=== PATIENT | female | born 1975 | race Caucasian/White ===

== ENCOUNTER 2022-07-25 08:31 | Outpatient (CLI) | payer BC, SELFPAY ==
[2022-07-30 22:55] LABS: FACV Specimen Whole Blood; Factor V Leiden (F5) Mutation Negative
== END 2022-07-25 08:32 | disposition home or self-care (01) ==
PROVIDERS: Visit Provider Nurse Practitioner Family
DX: Z01.419 Encounter for gynecological examination (general) (routine) without abnormal findings (principal); E03.9 Hypothyroidism, unspecified; Z83.2 Family history of diseases of the blood and blood-forming organs and certain disorders involving the immune mechanism
CPT/HCPCS: 81241; 84443

== ENCOUNTER 2023-10-05 08:21 | Outpatient (CLI) | payer BC, SELFPAY ==
--- OUTSIDE RECORDS SUMMARY | 2023-10-05 08:25 | XMS_ITS | Continuity of Care Document ---
Author Organization [facility] Address [address] [place] [address] Phone Care Team Providers Care Tier And Detonator Name Role Phone Debra Moo ANDRADE Unavailable Unavailable Allergies, Adverse Reactions, Alerts Substance Reaction Status Criticality No Known Allergies Active No Inform ation Medications Medication Instructions Dosage Effective Dates (start - stop) Status Comments prednisone 5 mg tablet Take 20 mg. orally daily X 3 days then 15 mg. daily X 3 days then 10 mg. daily X 3 days then 5 mg. daily X 3 days - Active MULTIVITAMINS (unknown strength) Not Available - Active LEVOTHYROXINE SODIUM (unknown strength) Not Available - Active OXYBUTYNIN CHLORIDE (unknown strength) Not Available - Active NITROFURANTOIN (unknown strength) Not Available - Active Procedures Procedure Date Office/Outpatient Visit,Est, Mod 2022 X-Ray Exam Lower Spine 2-3 Views 2022 Office/Outpatient Visit,Est, Mod 2021 X-Ray Exam Lower Spine 2-3 Views 2021 Office/Outpatient Visit,Est, Mod 2020 X-Ray Exam Lower Spine 2-3 Views 2020 Office/Outpatient Visit,Est, Mod 2020 X-Ray Exam Lower Spine 2-3 Views 2020 Postop Followup Visit X-Ray Exam Lower Spine 2-3 Views 2019 Postop Followup Visit X-Ray Exam Lower Spine 2-3 Views 2019 PSF, Lumbar - PA Lami, Facetectomy/Foraminotomy, Lumbar ( Stenosis) Posterior Instrumentation, Non-segmental - PA PEEK/ Cage/ Implant, For Interbody Fusio n - PA PSF, Lumbar ALIF / OLIF Anterior Lumbar Interbody Fu maryuri - Cosurgeon Lami, Facetectomy/Foraminotomy, Lumbar ( Stenosis) Posterior Instrumentation, Non-segmental PEEK/ Cage/ Implant, For Interbody Fusio n Allograft, Morcelized, and/or BMP Autograft, From Same Incision 0 OFFICE/OUTPATIENT VISIT EST Phone Office/Outpatient Visit,[facility], [facility] 2018 X-Ray Exam Lower Spine 2-3 Views 2018 Postop Followup Visit Postop Followup Visit Low Back Disk Surgery/Decompress 2014 Pa Assist Low Back Disk Surgery/Decompre ss Office/Outpatient Visit,[facility], [facility] 2014 Advance Directives Directive Yes / No Effective Date File Name No Information Encounters Encounter Description Practice Location Reason(s) For Visit Diagnoses Date Provider Providers Copied on Encounter Office/Outpa tient Visit,Est, Mod [facility], [address], [place], [place], [id number] , [place] tel: [phone] [facility] Other spondylosis, lumbar region 3 Debra Cortés. [address], [place], [place], [id number] , [place]. tel: [phone] Referring Provider: Lashaun Berger, [facility] [address], [place], [address]. tel:[phone] Office/Outpa tient Visit,Est, Mod [facility], [address], [place], [place], [id number] , [place] tel: [phone] [facility] [place] Spinal stenosis, lumbar region with neurogenic claudication Sep- 2 Debra Cortés. [address], [facility] [place], [id number] , [place]. tel: [phone] Referring Provider: Lashaun Berger, [place] [address], [place], [address]. tel: [phone] Office/Outpa tient Visit,Est, Mod [facility], [address], [place], [place], [id number] , [place] tel: [phone] [facility] [place] Spinal stenosis, lumbar region with neurogenic claudication Sep-3 0 1 Eckroth Moo. [address] [place] [address] [address], [place], [id number] , [place]. tel: [phone] Referring Provider: Lashaun Berger, [place] [address], [place], [address]. tel: [phone] Office/Outpa tient Visit,Est, Mod [facility], [address], [place], [place], [id number] , [place] tel: [phone] [facility] [place] Low back pain Mar-0 1 Eckrlayo Cortés. [address], [place], [place], [id number] , [place]. tel: [phone] Referring Provider: Lashaun Berger, [place] [address], [place], [address]. tel: [phone] [facility], [address], [place], [id number] , [place] tel: [phone] [facility] [place] Encounter for follow-up examination after completed treatment for conditions other than malignant neoplasm Nov-3 0 Eckroth Moo. [address], [place], [place], [id number] , [place]. tel: [phone] Referring Provider: Lashaun Berger, [place] [address], [place], [address]. tel: [phone] [facility], [address], [place], [id number] , [place] tel: [phone] [facility] [place] Encounter for follow-up examination after completed treatment for conditions other than malignant neoplasm 0 Mehbod Amir. [facility], [address], [place], [place], [id number] , [place]. tel: [phone] Referring Provider: Lashaun Berger, [facility] [address], [place], [address]. tel: [phone] [facility], [address], [place], [place], [id number] , [place] tel: [phone] [facility] No Information - 0 Eckroth Moo. [address] [place] [address] [address], [place], [place], [id number] , [place]. tel: [phone] Referring Provider: Lashaun Berger, [facility] [address], [place], [address]. tel:[phone] [facility], [address], [place], [place], [id number] , [place] tel: [phone] [facility] No Information 0 Mehbod Amir. [facility], [address], [place], [place], [id number] , [place]. tel: [phone] Referring Provider: Lashaun Berger, [facility] [address], [place], [address]. tel: [phone] OFFICE/OUTPA TIENT VISIT EST Phone [facility], [address], [place], [place], [id number] , [place] tel: [phone] [facility] No Information 0 Mehbod Amir. [facility], [address], [place], [place], [id number] , [place]. tel: [phone] Referring Provider: Lashaun Berger, [facility] [address], [place], [address]. tel:[phone] Office/Outpa tient Visit,New, Mod [facility], [address], [place], [place], [id number] , [place] tel: [phone] [facility] Radiculopathy, lumbar region 9 Jnfiona Cortés. [address], [place], [place], [id number] , [place]. tel: [phone] [facility], [address], [place], [address] , [place] tel: [phone] [facility] Radiculopathy, lumbar region 5 Mehbod Amir. [facility], [address], [place], [place], [address] , [place]. tel: [phone] [facility], [address], [place], [id number] , [place] tel: [phone] [facility] Displacement of intervertebral disc, site unspecified, without myelopathyLumbar Disc Displacement Mehbod Amir. [facility], [address] [place] [address] [address], [place], [address] , [place]. tel: [phone] [facility], [address], [place], [place], [address] , [place] tel: [phone] [facility] No Information Mehbod Amir. [facility], [address], [place], [place], [address] , [place]. tel: [phone] Office/Outpa tient Visit,New, Mod [facility], [address], [place], [id number] , [place] tel: [phone] [facility] Displacement of intervertebral disc, site unspecified, without myelopathyLumbar radiculopathyHer niated lumbar nucleus pulposus 5 Mehbod Amir. [facility], [address], [place], [place], [id number] , [place]. tel: [phone] Family History Family Member Type Diagnosis Age At Onset No Information Payers Payer name Insurance type Covered alliance party ID Authoriza tion(s) [employer] [facility] [id number] [facility] [id number] [facility] [id number] Social History Type Description Quantity Date Captured Comments Alcohol Use Details Unknown Caffeine Use Details Unknown Tobacco Use Status No Information Smoking Status No Information Sex Female Chief Complaint And Reason For Visit No Information Reason For Referral Reason For Referral No Information Plan Of Treatment Date Type Action Status Future Order: Radiology Order AP Lateral Lumbar (APLatLumb), Ordered on: Ordered History Of Present Illness Encounter Date Complaint History Of Prese nt Illness No Information Functional Status Date Functional Assessmen t No Information Instructions Date Instruction Additional Infor mation No Information Assessments Type Assessment Date No Information Patient Care Teams Name Effective Dates (start - stop) Status Members No Information
--- OUTSIDE RECORDS SUMMARY | 2023-10-05 08:25 | XMS_ITS | Referral Summary ---
Author Organization [facility] Address [address] [place] [address]. [place] [address] Care Team Providers Care Transit Mixer Driver Name Role Phone No Ref-Primary, Physician Primary Care Provider Allergies No known active allergies Medications Medication Sig Dispensed Refills Start Date End Date Status Cholecalciferol (VITAMIN D3) 1000 UNITS CAPS Take 1,000 Units by mouth 11/21/2014 Active levonorgestrel (MIRENA) 20 MCG/24HR IUDIndications:Nee ds removal in 2019 1 Device by Intrauterine route 09/01/2014 Active levothyroxine (SYNTHROID/LEVOTHR OID) 75 MCG tablet Take 75 mcg by mouth 09/01/2014 Active cephalexin (KEFLEX) 250 MG capsule 01/21/2017 Active oxybutynin (DITROPAN-XL) 5 MG 24 hr tablet 01/21/2017 Active predniSONE (DELTASONE) 5 MG tabletIndications: Pain of both elbows 5mg PO daily X 2 weeks and then stop 14 tablet 06/29/2017 Active Active Problems Problem Noted Date Diagnosed Date Encounter for supervision of other normal pregna ncy 12/04/2004 Overview: Diagnosis updated by automated process. Provider to review and confirm. Resolved Problems Problem Noted Date Diagnosed Date Resolved Date Disuse muscle atrophy 07/23/20122012 Incomplete bladder emptying 07/23/2012 12/27/2012 Immunizations Name Administration Dates Next Due Influenza (IIV3) PF 02/10/2005 Social History Tobacco Use Types Packs/Day Years Used Date Smoking Tobacco: Never Smokeless Tobacco: Never Alcohol Use Standard Drinks/Week Comments No 0 (1 standard drink = 0.6 oz pur e alcohol) Adolescent Education Answer Date Record ed Getting School Help Needed Not on file 01/18 Sex and Gender Information Value Date Recorded Sex Assigned at Not on file Gender Identity Not on file Sexual Orientation Not on file Last Filed Vital Signs Vital Sign Reading Time Taken Comments Blood Pressure 112/68 06/29/2017 11:38 AM CDT Pulse 80 06/29/2017 11:38 AM CDT Temperature 36.6 ??C (97.9 ??F) 06/29/2017 11:38 AM C DT Respiratory Rate 12 06/29/2017 11:38 AM CDT Oxygen Saturation 99% 06/29/2017 11:38 AM CDT Inhaled Oxygen Concentration - - Weight 58.1 kg (128 lb) 06/29/2017 11:38 AM CDT Height 160.7 cm (5' 3.25) 06/29/2017 11:38 AM C DT Body Mass Index 22.5 06/29/2017 11:38 AM CDT Plan of Treatment Not on file Care Teams Transit Mixer Driver Relationship Specialty Start Date End Date No Ref-Primary, Physician PCP - General 06/09/17
--- OUTSIDE RECORDS SUMMARY | 2023-10-05 08:25 | XMS_ITS | Clinical Summary ---
[facility] Address [address] [address] Care Team Providers Care Fountain Waitress/Waiter Name Role Phone Nette Gaspar APRN, TRAVELING PLANT OPERATOR Primary Care Provi yuni Unavailable Source Comments You are receiving this document as you are listed as the primary care provider,follow-up provider, or the patient has been referred to you for consultation.This is in compliance with the Medicare andMedicaid EHR Incentive Program,which states Providers who transition their patient to another setting of careor provider of care or refers their patient to another provider of care shouldprovide summary care record for each transition of care or referral. [facility] Allergies No known active allergies Medications Medication Sig Dispensed Refills Start Date End Date Status nitrofurantoin macrocrystal (AKA MACRODANTIN) 50 MG capsule Take 50 mg by mouth nightly. 06/06/2014 Active levothyroxine (AKA SYNTHROID) 75 MCG tablet Take 75 mcg by mouth daily (every 24 hours). 06/06/2014 Active oxybutynin (AKA DITROPAN XL) 5 MG 24 hour release tablet Take 5 mg by mouth daily (every 24 hours). 06/06/2014 Active levonorgestrel (AKA MIRENA) 20 MCG/24HR IUD 1 each by Intrauterine route See Admin Instructions. To be administered once every 5 years in clinic office. 06/06/2014 Active Multiple Vitamins-Minerals (MULTIVITAL OR) Take 1 tablet by mouth daily (every 24 hours). 06/06/2014 Active cholecalciferol (AKA VITAMIN D3) 1000 UNITS tablet Take 1,000 Units by mouth daily (every 24 hours). 06/06/2014 Active methylPREDNISolone (MEDROL 21 TABLET DOSEPACK) 4 MG tablet Follow package directions 21 Tablet 11/18/2018 Active gabapentin (NEURONTIN) 300 MG capsule Take 1 Capsule by mouth three times a day. 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 Displacement of intervertebral disc of cervical region 06/06/2014 Overview: Herniated disc Social History Tobacco Use Types Packs/Day Years Used Date Smoking Tobacco: Never Smokeless Tobacco: Never Alcohol Use Standard Drinks/Week Comments No 0 (1 standard drink = 0.6 oz pur e alcohol) Sex and Gender Information Value Date Recorded Sex Assigned at Not on file Gender Identity Not on file Sexual Orientation Not on file Last Filed Vital Signs Vital Sign Reading Time Taken Comments Blood Pressure 110/72 06/06/2014 3:31 PM SUPERVISOR FRAME SAMPLE AND PATTERN Pulse 112 06/06/2014 3:31 PM SUPERVISOR FRAME SAMPLE AND PATTERN Temperature - - Respiratory Rate - - Oxygen Saturation - - Inhaled Oxygen Concentration - - Weight 55.3 kg (122 lb) 06/06/2014 3:31 PM SUPERVISOR FRAME SAMPLE AND PATTERN Height 161.3 cm (5' 3.5) 06/06/2014 3:31 PM SUPERVISOR FRAME SAMPLE AND PATTERN Body Mass Index 21.27 06/06/2014 3:31 PM SUPERVISOR FRAME SAMPLE AND PATTERN Plan of Treatment Health Maintenance Due Date Last Done Comments Cervical Cancer Screening Due 1975 Colon Cancer Screening Plan Due 1975 Hep C Screening (Preventive Services) 1975 HIV Screening (Preventive Services) 1991 Adult Preventive Visit 11/22/1993 HepB (1) 11/22/1994 Cholesterol 11/22/2020 COVID-19 Vaccine ( season) 2022 08/31/2020, 08/10/2020 Influenza (Season Ended) 2023 020, 03/20/2020, 04/01/2019, Additional history exists Zoster/Shingles (1 of 2) 11/22/2025 DTaP/Tdap/Td (4 - Tdap) 02/20/2028 02/20/20 18, 07/10/2006, 06/15/1990, Additional history exists HepA Aged Out No longer eligi ble based on patient's age to complete this topic Hib Aged Out No longer eligi ble based on patient's age to complete this topic IPV (Polio) Aged Out No longer eligi ble based on patient's age to complete this topic MCV4 Aged Out No longer eligi ble based on patient's age to complete this topic Pneumococcal Aged Out No longer eligi ble based on patient's age to complete this topic Care Teams Fountain Waitress/Waiter Relationship Specialty Start Date End Date Nette Gaspar, PARALLEL COMPUTING SOFTWARE ENGINEER, TRAVELING PLANT OPERATOR PCP - General Nurse Practitioner 07/06/18
--- OUTSIDE RECORDS SUMMARY | 2023-10-05 08:25 | XMS_ITS | Encounter Summary ---
Author Organization [facility] Address [address] [place] [address]. [place] [address] Care Team Providers Care Radio Operator Name Role Phone Frw, None Primary Care Provider Unavailabl e No Ref-Primary, Physician Primary Care Provider Encounter Details Date Type Department Care Team (Late st Contact Info) Description 12/26/2004 [facility] [place] Inpatient Dept [address] [place] [id number] Frw, Inpatient Provider PHYSICIAN'S DISCHARGE SUMMARY/ORDER SHEET Social History Tobacco Use Types Packs/Day Years Used Date Smoking Tobacco: Never Smokeless Tobacco: Never Alcohol Use Standard Drinks/Week Comments No 0 (1 standard drink = 0.6 oz pur e alcohol) Sex and Gender Information Value Date Recorded Sex Assigned at Not on file Gender Identity Not on file Sexual Orientation Not on file documented as of this encounter Progress Notes * Zita Navas - 12/26/2004 7:00 AM CDTHISTORY AND PHYSICAL DATE OF ADMISSION: 12/26/2004 CHIEF COMPLAINT: Uterine contractions HISTORY: This patient is a 29-year-old 2, para 1 at 39 weeks + five days by last menstrual period, consistent with a 19 week + two week ultrasound on 08/05, who presents to Labor and Delivery complaining of contractions every 2-3 minutes since last night. The baby has been active. No recent illness. Membranes are intact. No bleeding. COURSE: Complicated only by being Rh negative. She received her Rhogam at 29 weeks in [place]. LABS: She's A negative. Rubella immune. Hepatitis B surface antigen negative. Our hour glucose tolerance test 90. Group B strep negative. All other labs were normal. PAST OB HISTORY: She had a vacuum assisted vaginal delivery in 2000, uncomplicated. PAST MEDICAL HISTORY: No major illnesses. MEDICATIONS: vitamins ALLERGIES: No known drug allergies. REVIEW OF SYSTEMS: Gastrointestinal - She's had some diarrhea over the last three days. Otherwise unremarkable. PHYSICAL EXAM: Afebrile. Vital signs stable. Neck no thyromegaly. Lungs clear to auscultation. Cardiovascular regular rate and rhythm. Abdomen gravid. Cervix is 7-8, 90%, 0 station. Artificial rupture of membranes was performed with clear fluid. Extremities nontender without edema. External monitor shows a reactive tracing and contractions every two minutes. ASSESSMENT: 29-year-old 2, para 1 at 39 plus 5 weeks gestation, active labor. PLAN: Artificial rupture of membranes done as noted above, clear fluid. Expectant management of labor. She declines anything for pain. Zita Navas M.D. KIANNA/jo ann cc: documented in this encounter Plan of Treatment Not on file documented as of this encounter Visit Diagnoses Not on filedocumented in this encounter Care Teams Radio Operator Relationship Specialty Start Date End Date Frw, None PCP - General 05/05/00 12/11/16 No Ref-Primary, Physician PCP - General 06/09/17 documented as of this encounter
--- OUTSIDE RECORDS SUMMARY | 2023-10-05 08:25 | XMS_ITS | Encounter Summary ---
Author Organization [facility] Address [address] [place] [address]. [place] [address] Care Team Providers Care Manager Call Name Role Phone Frw, None Primary Care Provider Unavailabl e Encounter Details Date Type Department Care Team (Late st Contact Info) Description 11/26/2008 3:41 AM CDT [facility] in [address] [phone] Jefferson Trejo MD Social History Tobacco Use Types Packs/Day Years Used Date Smoking Tobacco: Never Smokeless Tobacco: Never Alcohol Use Standard Drinks/Week Comments No 0 (1 standard drink = 0.6 oz pur e alcohol) Sex and Gender Information Value Date Recorded Sex Assigned at Not on file Gender Identity Not on file Sexual Orientation Not on file documented as of this encounter Progress Notes * Interface, Hand Dry Cleaner - 11/28/2008 10:18 AM CDT DISCHARGE SUMMARY Admission Date: 11/26/2008 Discharge Date: 11/28/2008 ADMISSION DIAGNOSIS: Spontaneous onset of labor at 41 weeks estimated gestational age. DISCHARGE DIAGNOSIS: Spontaneous onset of labor at 41 weeks estimated gestational age with normal spontaneous vaginal delivery. HOSPITAL COURSE: Ingrid was admitted with spontaneous onset of labor. We did perform an amniotomy. Labor progressed. She had no epidural, no anesthesia, except for local on the perineum and second degree episiotomy was performed. There was no extension. This was repaired in the usual fashion with 3-0 Vicryl. She delivered a live male with Apgars of 8 and 9 at 1 and 5 minutes, respectively, with weight 4240 grams. There were no complications with the delivery. Her course was uncomplicated. She was continued on her Pen VK for urinary tract infection started the week before delivery. She was also continued on her Synthroid for hypothyroidism that was stable during the . DISMISSAL PHYSICAL EXAM: GENERAL: Ingrid is alert, interactive and in no apparent distress. VITAL SIGNS: As noted in the chart. LUNGS: Clear. CARDIOVASCULAR: Regular rate and rhythm. UTERUS: Nontender, firm. EXTREMITIES: No lower extremity edema. DISMISSAL MEDICATIONS: She is to continue on her vitamin daily while breast feeding. She is to complete Pen VK as previously directed. She is to take Synthroid 50 micrograms daily. She is to use Tylenol and ibuprofen as needed for pain as directed on xelc-mtp-qoiapeu bottles. DISMISSAL INSTRUCTIONS: Complete pelvic rest x6 weeks. She is to see me in [place] at 6 weeks for a exam. Will check a TSH. If she has any other questions or concerns, she is to contact us or followup. Lashaun Berger M.D. cc: Lashaun LAIRD/[facility] * Interface, Hand Dry Cleaner - 11/26/2008 12:17 PM CDT HISTORY AND PHYSICAL DATE OF ADMISSION: 11/26/2008 Ingrid is a 33-year-old, 3, para 2-0-0-2, female at 41 weeks estimated gestational age coming in with spontaneous onset of labor. HISTORY OF PRESENT ILLNESS: Ingrid is 41 weeks with spontaneous onset of labor waking her up just before 3:00 a.m. this morning. She had been 4 centimeters dilated in the clinic, and this is her third and thus she proceeded directly to [place]. Our due date is November 19, 2008. Her course was complicated by 2 urinary tract infections, the first one being lactobacillus. She currently likely has another one. Only symptomatic for hematuria. The culture is pending. She was placed on Pen VK 500 milligrams 3 times a day Osvaldo night, 2 days ago. CURRENT MEDICATIONS: Pen VK 500 milligrams three times a day x7 days started Thursday night on the 24 of November; vitamin daily; and she also is on Synthroid 50 micrograms daily. ALLERGIES: No known drug allergies. 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 PAST OBSTETRICAL HISTORY/OBSTETRICAL LABS: Normal spontaneous vaginal delivery at 40 weeks December 2004 after 6 hours of labor with a male born 8 pounds 2 ounces. December 2000 normal spontaneous vaginal delivery after 26 hours of labor, male born, 8 pounds 6 ounces at 41+ weeks, episiotomy and vacuum were done per patient. RhoGAM negative. Received RhoGAM August of 2008. Antibiotic screen negative. RPR negative. Rubella immune. Hepatitis C surface antigen negative. Normal Pap smear July 2007. One hour glucose normal. Negative HIV. Negative group B strep. HABITS/SOCIAL: No smoking, alcohol, illicit drug use, . She is . Her , Ortega, is with her. FAMILY HISTORY: Grandfather with lung and kidney cancer, he was a smoker. There are thyroid problems in the family. REVIEW OF SYSTEMS: As listed above, otherwise: HEENT: Negative. PULMONARY: Negative. CARDIOVASCULAR: Negative. GASTROINTESTINAL: Negative. GENITOURINARY: Negative. MUSCULOSKELETAL: Negative. NEUROLOGICAL: Negative. PSYCHIATRIC: Negative. The patient notes the baby has been moving. PHYSICAL EXAM: GENERAL: Ingrid is alert, interactive, very pleasant, appearing comfortable. Strip is reviewed. heart tones 130s-140s, no decelerations. Contractions coming anywhere from 2-5 minutes. HEENT: Sclerae clear. Wearing glasses. Oropharynx normal. Face atraumatic. NECK: No cervical adenopathy or thyromegaly or masses or nodules. No neck vein distention. LUNGS: Clear. CARDIOVASCULAR: Regular rate and rhythm. No murmur. ABDOMEN: Gravid, baby palpates vertex. LOWER EXTREMITIES: No edema. SKIN: Without any rash. BIOMEDICAL ENGINEERING DIRECTOR: Cervix is about 6-7 centimeters, almost 90% effaced. The baby is 0 station. Amniotomy was performed with clear fluid. IMPRESSION/PLAN: 1. This is a 33-year-old, 3, para 2-0-0-2, female at 41 weeks estimated gestational age with spontaneous onset of labor: At this point, Ingrid does not want an epidural. She wants to try to proceed naturally. She will let us know if she should opt for anything for pain management, otherwise, we will anticipate delivery. 2. Hypothyroidism: Currently stable. We will check a TSH . 3. Urinary tract infection: The culture is currently pending at [place]. I will check culture and sensitivities tomorrow when I am there and change therapy if needed, otherwise, continue on Pen VK for 5 more days. Lashaun Berger M.D. EITAN/kat cc: documented in this encounter Plan of Treatment Not on file documented as of this encounter Visit Diagnoses Not on filedocumented in this encounter Care Teams Manager Call Relationship Specialty Start Date End Date Frw, None PCP - General 05/05/00 12/11/16 documented as of this encounter
--- OUTSIDE RECORDS SUMMARY | 2023-10-05 08:25 | XMS_ITS | Encounter Summary ---
Author Organization [facility] Address [address] [place] [address]. [place] [address] Care Team Providers Care [facility] Name Role Phone No Ref-Primary, Physician Primary Care Provider Encounter Details Date Type Department Care Team (Late st Contact Info) Description 06/16/2017 MyC Medical Advice [address] [phone] Hieu Toledo MD [facility] [address] [place], [place] [id number] Social History Tobacco Use Types Packs/Day Years Used Date Smoking Tobacco: Never Smokeless Tobacco: Never Alcohol Use Standard Drinks/Week Comments No 0 (1 standard drink = 0.6 oz pur e alcohol) Sex and Gender Information Value Date Recorded Sex Assigned at Not on file Gender Identity Not on file Sexual Orientation Not on file documented as of this encounter Plan of Treatment Not on file documented as of this encounter Visit Diagnoses Not on filedocumented in this encounter Care Teams [facility] Relationship Specialty Start Date End Date No Ref-Primary, Physician PCP - General 06/09/17 documented as of this encounter
--- OUTSIDE RECORDS SUMMARY | 2023-10-05 08:25 | XMS_ITS | Clinical Summary ---
Author Organization [facility] Address [address] [place] [address]. [place] [address] Care Team Providers Care Apparel Patternmaker Name Role Phone No Ref-Primary, Physician Primary [...] Dates Next Due Influenza (IIV3) PF 02/10/2005 Family History Medical History Relation Comments Thyroid Disease Mother Breast Cancer No family hx of Cancer - colorectal No family hx of Cerebrovascular Disease No family hx of Diabetes No family hx of Heart Disease No family hx of Hypertension No family hx of Relation Status Comments Brother Alive Father Alive Mother Alive Social History Tobacco Use Types Packs/Day Years [...] of Treatment Not on file Care Teams Apparel Patternmaker Relationship Specialty Start Date End Date No Ref-Primary, Physician PCP - General 06/09/17
--- OUTSIDE RECORDS SUMMARY | 2023-10-05 08:26 | XMS_ITS | Clinical Summary ---
Author Organization [facility] Address [place], [place] [address] Care Team Providers Care Swine Extension Field Specialist Name Role Phone Nette Gaspar PRODUCT MARKETING COORDINATOR Primary Care Provider Audrey vailable Allergies No known active allergies Medications Medication Sig Dispensed Refills Start Date End Date Status levothyroxine (SYNTHROID) 75 mcg tablet Take 1 tablet by mouth once daily. 0 09/01/2014 Active multivitamin (MVI) tablet Take 1 tablet by mouth once daily. 0 11/21/2014 Active oxybutynin XL (DITROPAN XL) 5 mg CR tablet Take 5 mg by mouth once daily. Active cephalexin (KEFLEX) 250 mg capsule Take 250 mg by mouth every morning. Active gabapentin (NEURONTIN) 400 mg capsule 08/22/2021 Active pentosan polysulfate (ELMIRON) 100 mg capsuleIndications:In terstitial cystitis Take 1 Capsule (100 mg) by mouth 3 times daily. 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 Hx: UTI (urinary tract infection) 11/21/2014 Overview: Frequent upper respiratory infection, last 1 years ago, controlled macrodantin OAB (overactive bladder) 11/21/2014 Overview: Ditropan daily L4-5 disk herniation 09/01/2014 Lumbosacral radiculopathy at L5 09/01/2014 Family History Medical History Relation Name Comments Good Health Brother Brother#1 Good Health Father Good Health Mother Good Health Son 1 Good Health Son 2 Good Health Son 3 Relation Name Status Comments Brother Father Mother Son 1 Son 2 Son 3 Social History Tobacco Use Types Packs/Day Years Used Date Smoking Tobacco: Never Smokeless Tobacco: Never Tobacco Cessation:Counseling Given: No Alcohol Use Standard Drinks/Week Comments No 0 (1 standard drink = 0.6 oz pur e alcohol) Sex and Gender Information Value Date Recorded Sex Assigned at Not on file Gender Identity Not on file Sexual Orientation Not on file Obstetrics History Last Filed Vital Signs Vital Sign Reading Time Taken Comments Blood Pressure 122/81 08/28/2021 10:12 AM CDT Pulse 84 08/28/2021 10:12 AM CDT Temperature 36.6 ??C (97.8 ??F) 12/17/2019 4:00 PM CD T Respiratory Rate 16 12/17/2019 4:00 PM CDT Oxygen Saturation 100% 08/28/2021 10: 12 AM CDT Inhaled Oxygen Concentration - - Weight 60.2 kg (132 lb 12.8 oz) 022 10:12 AM CDT Height 160 cm (5' 3) 12/14/2019 6:19 AM CDT Body Mass Index 23.52 12/14/2019 6:19 AM CDT Plan of Treatment Health Maintenance Due Date Last Done Comments Tdap 11/22/1986 Depression screening for age 12+ 1987 HIV for age 15-65 11/22/1990 BMI (ht and wt on same day) for age 18+ 11/22/1993 Hepatitis C screening for ag e 18-79 11/22/1993 Tetanus booster 1995 Pap test for age 21-65 08/22/2016 4, 08/22/2013 Colonoscopy through age 75 11/22/2020 Lipids for age 45-75 11/22/2020 Mammogram for age 45-75 11/22/2020 COVID-19 vaccine series (2022- season) 2022 08/31/2020, 08/10/2020 Influenza for age 9-49 12/13/2023 Pneumococcal series for age 6-64 Aged Out No longer eligible b ased on patient's age to complete this topic Medical Devices Implanted Type Area Chocolate Production Machine Operator Device Identifier Shelf Expiration Date Model / Serial / Lot [id number] 1-4mm 30cc Medtronic Chips Canclls Freeze Dried Implanted:Qty: 1 on 12/14/2019 by Ricardo Humphrey MD at [facility] Explanted:at [facility] (Quantity not on file) N/A: Spine Medtronic Spine/Ortho 06/09/2024 [id number] / [id number] / Bone Matrix 5cc Jacob Plus Paste Dbm - [id number] Implanted:Qty: 1 on 12/14/2019 by Ricardo Humphrey MD at [facility] Explanted:at [facility] (Quantity not on file) N/A: Spine Medtronic Spine/Ortho 07/05/2021 [id number] / [id number] / Spacer Lmbr Md 14mm 8deg Perimeter Alif Peek - [id number] Implanted:Qty: 1 on 12/14/2019 by Ricardo Humphrey MD at [facility] N/A: Spine Medtronic Spine/Ortho 02/14/2021 [id number] / / [id number] Set Screw Lmbr Ant 5.5mm Solera Break Off - [id number] Implanted:Qty: 4 on 12/14/2019 by Ricardo Humphrey MD at [facility] N/A: Spine Medtronic Spine/Ortho [id number] / / Shankar Lmbr 30x5.5mm Solera 5.5/6cvd Titnm - [id number] Implanted:Qty: 1 on 12/14/2019 by Ricardo Humphrey MD at [facility] N/A: Spine Medtronic Spine/Ortho [id number] # / / Shankar Lmbr 35x5.5mm Solera 5.5/6cvd Titnm - [id number] Implanted:Qty: 1 on 12/14/2019 by Ricardo Humphrey MD at [facility] N/A: Spine Medtronic Spine/Ortho [id number] # / / Screw Lmbr Post 6.5x40mm Solera 5.5/6 Va Cocr - [id number] Implanted:Qty: 1 on 12/14/2019 by Ricardo Humphrey MD at [facility] N/A: Spine Medtronic Spine/Ortho [id number]# / / Screw Lmbr Post 6.5x45mm Solera 5.5/6 Va Cocr - [id number] Implanted:Qty: 1 on 12/14/2019 by Ricardo Humphrey MD at [facility] N/A: Spine Medtronic Spine/Ortho [id number]# / / Screw Lmbr Post 5.5x40mm Solera 5.5/6 Va Cocr - [id number] Implanted:Qty: 2 on 12/14/2019 by Ricardo Humphrey MD at [facility] N/A: Spine Medtronic Spine/Ortho [id number] 0# / / Procedures Procedure Name Priority Date/Time Associated Diagnosis Comments HPV THIN PREP Timed 08/22/2013 4:00 PM CDT from Last 3 Months or Most Recently Relevant to Health Maintenance Results * HPV THIN PREP (08/22/2013 4:00 PM CDT) SPECIMEN/SOURC E Thin prep [facility] HPV RESULTS High Risk HPV Negative. HPV types 16,18,31, 33,35,39, 45,51,52, 56,58,59, 66 and 68 DNA were undetecta ble or below the pre-set threshold . Methodolo gy: Jennifer Gilbert 4800 HPV Test [facility] 08/22/2013 4:00 PM CDT 08/23/2013 1:48 PM CDT Lashaun Berger MD MICROBIOLOGY [facility] INTERNAL ZIP [id number] [place] [phone] from Last 3 Months or Most Recently Relevant to Health Maintenance Advance Directives * Full Code (Latest Code Status on File) Date Activated Date Inactivated Comments 12/14/2019 3:08 PM 12/17/2019 9:38 PM Question Answer Comments Code Status Discussion: Not Discussed * Full Code Date Activated Date Inactivated Comments 11/29/2014 6:52 PM 12/01/2014 5:06 PM * Full Code Date Activated Date Inactivated Comments 11/29/2014 12:32 PM 11/29/2014 6:52 PM Care Teams Swine Extension Field Specialist Relationship Specialty Start Date End Date Nette Gaspar PRODUCT MARKETING COORDINATOR [address] [place] [address] PCP - General Emergency Medicine 08/28/21
== END 2023-10-05 08:22 | disposition home or self-care (01) ==
PROVIDERS: PCP Nurse Practitioner Family; Visit Provider Nurse Practitioner Family
DX: Z13.1 Encounter for screening for diabetes mellitus (principal); Z13.220 Encounter for screening for lipoid disorders; E03.9 Hypothyroidism, unspecified; Z13.0 Encounter for screening for diseases of the blood and blood-forming organs and certain disorders involving the immune mechanism
CPT/HCPCS: 80061; 82947; 84443; 85025

== ENCOUNTER 2023-10-12 14:31 | Outpatient (CLI) | payer BC, SELFPAY ==
--- NOTE | 2023-10-12 14:40 | CRLHL7_ITS ---
For Patients: As a result of the Century Cures Act, medical imaging exams and procedure reports are released immediately into your electronic medical record. You may view this report before your referring provider. If you have questions, please contact your health care provider. BILATERAL SCREENING MAMMOGRAM WITH COMPUTER-AIDED DETECTION AND TOMOSYNTHESIS TECHNIQUE: CC and MLO views were obtained. These mammographic images have been obtained using full-field digital technique. These mammographic images were interpreted with the benefit of computer-aided detection. Breast Tomosynthesis was used in this interpretation. COMPARISON FILM: 05/03/21, 03/17/18, 02/26/18. FINDINGS: The breasts are heterogeneously dense, which may obscure small masses. IMPRESSION: There is no radiographic evidence for malignancy. ASSESSMENT: BI-RADS Category 1: Negative RECOMMENDATION: Routine screening mammogram in 1 year. A lay language report of this examination will be provided to the patient. Fernando Phillip M.D. Diagnostic Radiologist [email or web address] SP/Dictated by: Fernando Phillip MD @ 10/14/2023 1:20:00 PM (Electronically Signed)
--- OUTSIDE RECORDS SUMMARY | 2023-10-12 14:43 | XMS_ITS | Clinical Summary ---
Author Organization [facility] Address [address] [place] [address]. [place] [address] Care Team Providers Care Warehouse And Receiving Supervisor Name Role Phone No Ref-Primary, Physician Primary [...] of Treatment Not on file Care Teams Warehouse And Receiving Supervisor Relationship Specialty Start Date End Date No Ref-Primary, Physician PCP - General 06/09/17
--- OUTSIDE RECORDS SUMMARY | 2023-10-12 14:43 | XMS_ITS | Clinical Summary ---
[facility] Address [address], [place] [address] Care Team Providers Care Survey Instrument Operator Name Role Phone Nette Gaspar APRN, CERTIFIED PHYSICIAN ASSISTANT Primary Care Provi yuni Unavailable Source Comments [...] for each transition of care or referral. [facility] Allergies No known active allergies Medications Medication [...] Overview: History of bladder sling surgery at [facility] 03/08/12. Displacement of intervertebral disc of cervical [...] Comments Blood Pressure 110/72 06/06/2014 3:31 PM EXCEPTIONAL NEEDS TEACHER Pulse 112 06/06/2014 3:31 PM EXCEPTIONAL NEEDS TEACHER Temperature - - Respiratory Rate - - Oxygen Saturation - - Inhaled Oxygen Concentration - - Weight 55.3 kg (122 lb) 06/06/2014 3:31 PM EXCEPTIONAL NEEDS TEACHER Height 161.3 cm (5' 3.5) 06/06/2014 3:31 PM EXCEPTIONAL NEEDS TEACHER Body Mass Index 21.27 06/06/2014 3:31 PM EXCEPTIONAL NEEDS TEACHER Plan of Treatment Health Maintenance Due Date Last Done Comments Cervical Cancer Screening Due 1975 Colon Cancer Screening Plan Due 1975 Hep C Screening (Preventive Services) 1975 Mammogram 1975 HIV Screening (Preventive Services) 1991 Adult Preventive Visit 11/22/1993 HepB (1) 11/22/1994 Cholesterol 11/22/2020 COVID-19 Vaccine (3 - season) 2022 08/31/2020, 08/10/2020 Influenza (Season Ended) [...] age to complete this topic Care Teams Survey Instrument Operator Relationship Specialty Start Date End Date Nette Gaspar, REMELT SUGAR BOILER, CERTIFIED PHYSICIAN ASSISTANT PCP - General Nurse Practitioner 07/06/18
--- OUTSIDE RECORDS SUMMARY | 2023-10-12 14:43 | XMS_ITS | Encounter Summary ---
Author Organization [facility] Address [address] [place] [address]. [place] [address] Care Team Providers Care Mortgage Loan Underwriter Name Role Phone Frw, None Primary Care Provider Unavailabl e No Ref-Primary, Physician Primary Care Provider Encounter Details Date Type Department Care Team (Late st Contact Info) Description 12/26/2004 [facility] in [place] Inpatient Dept [address] [place] [phone] Frw, Inpatient Provider PHYSICIAN'S DISCHARGE SUMMARY/ORDER SHEET [...] received her Rhogam at 29 weeks in [place]. LABS: She's A negative. Rubella immune. Hepatitis [...] on filedocumented in this encounter Care Teams Mortgage Loan Underwriter Relationship Specialty Start Date End Date Frw, None PCP - General 05/05/00 12/11/16 No Ref-Primary, Physician PCP - General 06/09/17 documented as of this encounter
--- OUTSIDE RECORDS SUMMARY | 2023-10-12 14:43 | XMS_ITS | Continuity of Care Document ---
Author Organization [facility] Address [address] [place] [address] Phone Care Team Providers Care Manufacturing Technology Professor Name Role Phone Debra Moo ANDRADE Unavailable [...] Incision 0 OFFICE/OUTPATIENT VISIT EST Phone Office/Outpatient Visit,[facility], [facility] 2018 X-Ray Exam Lower Spine 2-3 Views 2018 Postop Followup Visit Postop Followup Visit Low Back Disk Surgery/Decompress 2014 Pa Assist Low Back Disk Surgery/Decompre ss Office/Outpatient Visit,[facility], [facility] 2014 Advance Directives Directive Yes / No Effective Date File Name No Information Encounters Encounter Description Practice Location Reason(s) For Visit Diagnoses Date Provider Providers Copied on Encounter Office/Outpa tient Visit,Est, Mod [facility], [address], [place], [place], [id number] , [place] tel: [phone] [facility] Other spondylosis, lumbar region 3 Debra Cortés. [address], [place], [place], [id number] , [place]. tel: [phone] Referring Provider: Lashaun Berger, [facility] [address], [place], [address]. tel:[phone] Office/Outpa tient Visit,Est, Mod [facility], [address], [place], [place], [id number] , [place] tel: [phone] [facility] [place] Spinal stenosis, lumbar region with neurogenic claudication Sep- 2 Debra Cortés. [address], [facility] [place], [id number] , [place]. tel: [phone] Referring Provider: Lashaun Berger, [place] [address], [place], [address]. tel: [phone] Office/Outpa tient Visit,Est, Mod [facility], [address], [place], [id number] , [place] tel: [phone] [facility] [place] Spinal stenosis, lumbar region with neurogenic claudication Sep-3 0 1 Eckroth Moo. [address] [place] [address] [address], [place], [address] , [place]. tel: [phone] Referring Provider: Lashaun Berger, [place] [address], [place], [address]. tel: [phone] Office/Outpa tient Visit,Est, Mod [facility], [address], [place], [place], [address] , [place] tel: [phone] [facility] [place] Low back pain Mar-0 1 Eckrlayo Cortés. [address], [place], [place], [address] , [place]. tel: [phone] Referring Provider: Lashaun Berger, [place] [address], [place], [address]. tel: [phone] [facility], [address], [place], [address] , [place] tel: [phone] [facility] [place] Encounter for follow-up examination after completed treatment for conditions other than malignant neoplasm Nov-3 0 Eckroth Moo. [address], [place], [place], [id number] , [place]. tel: [phone] Referring Provider: Lashaun Berger, [place] [address], [place], [address]. tel: [phone] [facility], [address], [place], [address] , [place] tel: [phone] [facility] [place] Encounter for follow-up examination after completed treatment for conditions other than malignant neoplasm 0 Mehbod Amir. [facility] [place], [address], [place], [place], [address] , [place]. tel: [phone] Referring Provider: Lashaun Berger, [facility] [address], [place], [address]. tel: [phone] [facility], [address], [place], [place], [address] , [place] tel: [phone] [facility] No Information - 0 Eckroth Moo. [address] [place] [address] [address], [place], [place], [address] , [place]. tel: [phone] Referring Provider: Lashaun Berger, [facility] [address], [place], [address]. tel:[phone] [facility], [address], [place], [place], [address] , [place] tel: [phone] [facility] No Information 0 Mehbod Amir. [facility] [place], [address], [place], [place], [address] , [place]. tel: [phone] Referring Provider: Lashaun Berger, [facility] [address], [place], [address]. tel: [phone] OFFICE/OUTPA TIENT VISIT EST Phone [facility], [address], [place], [place], [id number] , [place] tel: [phone] [facility] No Information 0 Mehbod Amir. [facility] [place], [address], [place], [place], [address] , [place]. tel: [phone] Referring Provider: Lashaun Berger, [facility] [address], [place], [address]. tel:[phone] Office/Outpa tient Visit,New, Mod [facility], [address], [place], [place], [address] , [place] tel: [phone] [facility] Radiculopathy, lumbar region 9 Jnfiona Cortés. [address], [place], [address] , [place]. tel: [phone] [facility], [address], [place], [address] , [place] tel: [phone] [facility] Radiculopathy, lumbar region 5 Mehbod Amir. [facility], [address], [place], [address] , [place]. tel: [phone] [facility], [address], [place], [place], [address] , [place] tel: [phone] [facility] Displacement of intervertebral disc, site unspecified, without myelopathyLumbar Disc Displacement Mehbod Amir. [facility], [address] [place] [address] [address], [place], [id number] , [place]. tel: [phone] [facility], [address], [place], [address] , [place] tel: [phone] [facility] No Information Mehbod Amir. [facility], [address], [place], [place], [address] , [place]. tel: [phone] Office/Outpa tient Visit,New, Mod [facility], [address], [place], [address] , [place] tel: [phone] [facility] Displacement of intervertebral disc, site unspecified, without myelopathyLumbar radiculopathyHer niated lumbar nucleus pulposus 5 Mehbod Amir. [facility], [address], [place], [place], [address] , [place]. tel: [phone] Family History Family Member Type Diagnosis Age At Onset No Information Payers Payer name Insurance type Covered green party ID Authoriza tion(s) [facility] [id number] [facility] [id number] [facility] [id number] Social History Type Description Quantity Date Captured [...]
--- OUTSIDE RECORDS SUMMARY | 2023-10-12 14:43 | XMS_ITS | Encounter Summary ---
Author Organization [facility] Address [address] [place] [address]. [place] [address] Care Team Providers Care Loans Consultant Name Role Phone No Ref-Primary, Physician Primary Care Provider Encounter Details Date Type Department Care Team (Late st Contact Info) Description 06/16/2017 My[facility] Medical Advice [address] [address] Hieu Toledo MD [facility] [address] [place], [place] [address] Social History Tobacco Use Types Packs/Day Years [...] on filedocumented in this encounter Care Teams Loans Consultant Relationship Specialty Start Date End Date No Ref-Primary, Physician PCP - General 06/09/17 documented as of this encounter
--- OUTSIDE RECORDS SUMMARY | 2023-10-12 14:43 | XMS_ITS | Clinical Summary ---
Author Organization [facility] Address [place], [place] [address] Care Team Providers Care Photographer'S Assistant Name Role Phone Nette Gaspar CATTLE AND WHEAT FARMER Primary Care Provider Audrey vailable Allergies No [...] this topic Medical Devices Implanted Type Area Tree Climber Device Identifier Shelf Expiration Date Model / Serial / Lot [id number] 1-4mm 30cc Medtronic Chips Canclls Freeze Dried Implanted:Qty: 1 on 12/14/2019 by Ricardo Humphrey MD at [facility] Explanted:at [facility] (Quantity not on file) N/A: Spine Medtronic Spine/Ortho 06/09/2024 [id number] / [id number] / Bone Matrix 5cc Jacob Plus Paste Dbm - [id number] Implanted:Qty: 1 on 12/14/2019 by Ricardo Humphrey MD at [facility] Explanted:at [facility] (Quantity not on file) N/A: Spine Medtronic Spine/Ortho 07/05/2021 [id number] / [id number] / Spacer Lmbr Md 14mm 8deg Perimeter Alif Peek - [id number] Implanted:Qty: 1 on 12/14/2019 by Ricardo Humphrey MD at [facility] N/A: Spine Medtronic Spine/Ortho 02/14/2021 [id number] / / [id number] Set Screw Lmbr Ant 5.5mm Solera Break Off - [id number] Implanted:Qty: 4 on 12/14/2019 by Ricardo Humphrey MD at [facility] N/A: Spine Medtronic Spine/Ortho [id number] / / Shankar Lmbr 30x5.5mm Solera 5.5/6cvd Titnm - [id number] Implanted:Qty: 1 on 12/14/2019 by Ricardo Humphrey MD at [facility] N/A: Spine Medtronic Spine/Ortho [id number] # / / Shankar Lmbr 35x5.5mm Solera 5.5/6cvd Titnm - [id number] Implanted:Qty: 1 on 12/14/2019 by Ricardo Humphrey MD at [facility] N/A: Spine Medtronic Spine/Ortho [id number] # / / Screw Lmbr Post 6.5x40mm Solera 5.5/6 [facility] - [id number] Implanted:Qty: 1 on 12/14/2019 by Ricardo Humphrey MD at [facility] N/A: Spine Medtronic Spine/Ortho [id number]# / / Screw Lmbr Post 6.5x45mm Solera 5.5/6 [facility] - [id number] Implanted:Qty: 1 on 12/14/2019 by Ricardo Humphrey MD at [facility] N/A: Spine Medtronic Spine/Ortho [id number]# / / Screw Lmbr Post 5.5x40mm Solera 5.5/6 [facility] - [id number] Implanted:Qty: 2 on 12/14/2019 by Ricardo Humphrey MD at [facility] N/A: Spine Medtronic Spine/Ortho [id number]# / / Procedures Procedure Name Priority Date/Time Associated Diagnosis Comments HPV THIN PREP Timed 08/22/2013 4:00 PM CDT from Last 3 Months or Most Recently Relevant to Health Maintenance Results * HPV THIN PREP (08/22/2013 4:00 PM CDT) SPECIMEN/SOURC E Thin prep [facility] HPV RESULTS High Risk HPV Negative. HPV types 16,18,31, 33,35,39, 45,51,52, 56,58,59, 66 and 68 DNA were undetecta ble or below the pre-set threshold . Methodolo gy: Jennifer Gilbert [address] [facility] 08/22/2013 4:00 PM CDT 08/23/2013 1:48 PM CDT Lashaun Berger MD MICROBIOLOGY [facility] INTERNAL ZIP [address] [place] [address] from Last 3 Months or Most Recently [...] 12:32 PM 11/29/2014 6:52 PM Care Teams Photographer'S Assistant Relationship Specialty Start Date End Date Nette Gaspar CATTLE AND WHEAT FARMER [address] [place] [address] PCP - General Emergency Medicine 08/28/21
--- OUTSIDE RECORDS SUMMARY | 2023-10-12 14:43 | XMS_ITS | Continuity of Care Document ---
Author Organization [facility] Address [address] [address] [place] [address] Phone Care Team Providers Care Dairy Chemist Name Role Phone Pedro Pablo Paulson MD Unavailable Unavailable Allergies, Adverse Reactions, Alerts Substance Reaction Status Criticality No Known Allergies Active No Inform ation Medications Medication Instructions Dosage Effective Dates (start - stop) Status Comments oxybutynin chloride ER 10 mg tablet,extended release 24 hr take 1 tablet by oral route every day 10 MG - Active cephalexin 250 mg tablet take 1 tablet by oral route daily - Active levothyroxine 75 mcg capsule take 1 capsule by oral route every day 75 MCG - Active diazepam 5 mg tablet take 1 tablet by or al route every day 5 MG - Active Procedures Procedure Date Offic/outpt E&m New Mod-hi Advance Directives Directive Yes / No Effective Date File Name No Information Encounters Encounter Description Practice Location Reason(s) For Visit Diagnoses Date Provider Providers Copied on Encounter Offic/outpt E&m New Mod-hi [facility], [address] [address], [place], [place], [address], [place] tel:[phone] [facility] GI Symptoms or Concerns (chief complaint) Chronic abdominal painOther chronic pain Khurram Chamorro. [address] [facility] [address], [place], [place], [address], [place]. tel:[phone] Referring Provider: Nette Gaspar NP M, [address] [place], [address]. tel:[phone] [facility], [address] [address], [place], [place], [address], [place] tel:[phone] [facility] No Information Livan Castellanos. [address] [facility], [place], [place], [address], [place]. tel:[phone] Family History Family Member Type Diagnosis Age At Onset Father Problem (finding) Colon polyps Mother Problem (finding) Thyroid disorder Immunizations Vaccine Date Status Comments SARS-COV-2 (COVID-19) vaccin e, mRNA, spike protein, LNP, preservative free, 30 mcg/0.3mL dose administered Note: [facility] bi-direct ional interface ; Source: Other Registry SARS-COV-2 (COVID-19) vaccin e, mRNA, spike protein, LNP, preservative free, 30 mcg/0.3mL dose administered Note: [facility] bi-direct ional interface ; Source: Other Registry Afluria Qd administered Note: [facility] bi-directional interface ; Source: Other Registry Afluria Qd administered Note: [facility] bi-directional interface ; Source: Other Registry tetanus toxoid, reduced diphtheria toxoid, and acellular pertussis vaccine, adsorbed administered Note: [facility] b i-directional interface ; Source: Other Registry Afluria Qd administered Note: [facility] bi-directional interface ; Source: Other Registry Afluria Qd administered Note: [facility] bi-directional interface ; Source: Other Registry Afluria Qd administered Note: [facility] bi-directional interface ; Source: Other Registry Afluria Qd administered Note: [facility] bi-directional interface ; Source: Other Registry Influenza, seasonal, injectable administe red Note: [facility] bi- directional interface ; Source: Other Registry Influenza, seasonal, injecta ble, preservative free administered Note: [facility] bi-direct ional interface ; Source: Other Registry Novel [id number], shay e virus for nasal administration administered Note: [facility] C bi- directional interface ; Source: Other Registry diphtheria, tetanus toxoids and acellular pertussis vaccine administered Note: [facility] b i-directional interface ; Source: Other Registry Influenza, seasonal, injectable administe red Note: [facility] bi- directional interface ; Source: Other Registry Engerix-B administered Note: [facility] bi-d irectional interface ; Source: Other Registry Engerix-B administered Note: [facility] bi-d irectional interface ; Source: Other Registry Engerix-B administered Note: [facility] bi-d irectional interface ; Source: Other Registry measles, mumps and rubella v irus vaccine administered Note: [facility] bi-direct ional interface ; Source: Other Registry tetanus and diphtheria toxoi ds, adsorbed, preservative free, for adult use (5 Lf of tetanus toxoid and 2 Lf of diphtheria toxoid) administered Note: [facility] C bi- directional interface ; Source: Other Registry measles, mumps and rubella v irus vaccine administered Note: [facility] bi-direct ional interface ; Source: Other Registry Payers Payer name Insurance type Covered libertarian ID Authoriza tifrandy(s) [employer] [facility] [id number] Social History Type Description Quantity Date Captured Comments Alcohol Use Details No Caffeine Use Details Unknown Tobacco Use Status undefined Smoking Status Never smoker Sex Female Vital Signs Date / Time: Height Weight BMI Pulse Rate Blood Pressure Temperature Respiratory Rate Body Surface Area Head Circumference Head Circ. Percentile Wt./Cuco. Percentile BMI percentile Pulse Ox Inhaled Ox 8:41 AM 63.00 in 55.157 kg (121.60 lbs) 21.5 4 kg/m eter (2) 73 /min 121/74 mm[Hg] Chief Complaint And Reason For Visit From encounter dated '09/04/2022 09:00'. GI Symptoms or Concerns (chief complaint). Description: Ingrid is a very pleasant 46-year-old female who has been referred by Nette Gaspar NP for consultation regarding abdominal pain.Patient underwent hysterectomy in 2019, and had a complicated postop course requiring repeat surgery and developed adhesions as a result. Apart from that, she has been quite healthy overall. Her abdominal pain started over a year ago, she describes the pain as bandlike across her mid abdomen without any association with eating, bowel movements or body movement. It happens once or twice a week, would last no more than a minute or 2 and self resolves. It is not associated with any nausea, vomiting, and does not seem to be progressive in nature.She reports mild constipation managed with stool softeners. Currently moving her bowels more or less regularly without any bleeding per rectum or melena.She reportshistory of migraine and overactive bladder.Had a Cologuard done recently for screening that was negative.She denies family history of colon cancer, IBD. Reason For Referral Reason For Referral No Information History Of Present Illness Encounter Date Complaint History Of Prese nt Illness GI Symptoms or Concerns Ingrid is a very pleasant 46-year-old female who has been referred by Nette Gaspar NP for consultation regarding abdominal pain.Patient underwent hysterectomy in 2019, and had a complicated postop course requiring repeat surgery and developed adhesions as a result. Apart from that, she has been quite healthy overall. Her abdominal pain started over a year ago, she describes the pain as bandlike across her mid abdomen without any association with eating, bowel movements or body movement. It happens once or twice a week, would last no more than a minute or 2 and self resolves. It is not associated with any nausea, vomiting, and does not seem to be progressive in nature.She reports mild constipation managed with stool softeners. Currently moving her bowels more or less regularly without any bleeding per rectum or melena.She reports history of migraine and overactive bladder.Had a Cologuard done recently for screening that was negative.She denies family history of colon cancer, IBD. Functional Status Date Functional Assessmen t No Information Instructions Date Instruction Additional Infor mation No Information Assessments Type Assessment Date assessment Chronic abdominal pain assessment Other chronic pain impression In summary, 46-year- old female with complicated post-hysterectomy 2 years ago with subsequent development of intermittent short lasting pain without any associated features. Overall, given lack of progression or associated features and short lasting intermittent nature, the symptom is not reflection of any structural abnormality such as IBD, malignancy, partial bowel obstruction etc. Her history of migraine, overactive bladder also points towards neuropathic nature of this pain. We discussed in detail that a CT scan or colonoscopy may reveal unexpected findings which may or may not be the cause of this current symptoms. Patient expressed her understanding, decided not to proceed with either CT or colonoscopy at this point. Should she develop any additional symptoms or pain becomes more severe or frequent, she will get back in touch with us.In terms of treatment, she does not want to take any medications on a regular basis such as tricyclic antidepressants, and given that the pain lasts only a minute or 2, reactive strategy would likely not be beneficial. Patient Care Teams Name Effective Dates (start - stop) Status Members No Information
--- OUTSIDE RECORDS SUMMARY | 2023-10-12 14:43 | XMS_ITS | Encounter Summary ---
Author Organization [facility] Address [address] [place] [address]. [place] [address] Care Team Providers Care Cutch Cleaner Name Role Phone Frw, None Primary Care Provider Unavailabl e Encounter Details Date Type Department Care Team (Late st Contact Info) Description 11/26/2008 3:41 AM CDT [facility] in [address] [phone] Jefferson Trejo MD Social History Tobacco Use [...] of this encounter Progress Notes * Interface, Plastics Engineer - 11/28/2008 10:18 AM CDT DISCHARGE SUMMARY [...] 3-0 Vicryl. She delivered a live male infant with Apgars of 8 and 9 at [...] as needed for pain as directed on mkxa-ehf-ujmquxv bottles. DISMISSAL INSTRUCTIONS: Complete pelvic rest x6 weeks. She is to see me in [place] at 6 weeks for a exam. Will check a TSH. If she has any other questions or concerns, she is to contact us or followup. Lashaun Berger M.D. cc: Lashaun LAIRD/[facility] * Interface, Plastics Engineer - 11/26/2008 12:17 PM CDT HISTORY AND [...] third and thus she proceeded directly to [place]. Our due date is November 19, 2008. [...] EXTREMITIES: No edema. SKIN: Without any rash. THERMAL SURFACING MACHINE OPERATOR: Cervix is about 6-7 centimeters, almost 90% [...] infection: The culture is currently pending at [place]. I will check culture and sensitivities tomorrow when I am there and change therapy if needed, otherwise, continue on Pen VK for 5 more days. Lashaun Berger M.D. EITAN/kat cc: documented in this encounter Plan of Treatment Not on file documented as of this encounter Visit Diagnoses Not on filedocumented in this encounter Care Teams Cutch Cleaner Relationship Specialty Start Date End Date Frw, None PCP - General 05/05/00 12/11/16 documented as of this encounter
--- OUTSIDE RECORDS SUMMARY | 2023-10-12 14:43 | XMS_ITS | Referral Summary ---
Author Organization [facility] Address [address] [place] [address]. [place] [address] Care Team Providers Care Lens Hardener Name Role Phone No Ref-Primary, Physician Primary [...] of Treatment Not on file Care Teams Lens Hardener Relationship Specialty Start Date End Date No Ref-Primary, Physician PCP - General 06/09/17
== END 2023-10-12 14:32 | disposition home or self-care (01) ==
LOC: MAMMO 14:32
PROVIDERS: PCP Nurse Practitioner Family; Visit Provider Nurse Practitioner Family
DX: Z12.31 Encounter for screening mammogram for malignant neoplasm of breast (principal); R92.2 Inconclusive mammogram
CPT/HCPCS: 77063; 77067

== ENCOUNTER 2023-10-22 14:58 | Outpatient (CLI) | payer BC, SELFPAY ==
--- OUTSIDE RECORDS SUMMARY | 2023-10-23 05:55 | XMS_ITS | Encounter Summary ---
Author Organization [facility] Address [address] [place] [address]. [place] [address] Care Team Providers Care Rating Specialist Name Role Phone Frw, None Primary Care Provider Unavailabl e Encounter Details Date Type Department Care Team (Late st Contact Info) Description 11/26/2008 3:41 AM CDT [facility] in [address] [phone] Jefferson Trejo MD Social History Tobacco Use [...] of this encounter Progress Notes * Interface, Telex Operator - 11/28/2008 10:18 AM CDT DISCHARGE SUMMARY [...] as needed for pain as directed on wijm-jol-vnhjuyo bottles. DISMISSAL INSTRUCTIONS: Complete pelvic rest x6 weeks. She is to see me in [place] at 6 weeks for a exam. Will check a TSH. If she has any other questions or concerns, she is to contact us or followup. Lashaun Berger M.D. cc: [facility] * Interface, Telex Operator - 11/26/2008 12:17 PM CDT HISTORY AND [...] third and thus she proceeded directly to [place]. Our due date is November 19, 2008. [...] EXTREMITIES: No edema. SKIN: Without any rash. ASSISTANT AT SURGERY: Cervix is about 6-7 centimeters, almost 90% [...] infection: The culture is currently pending at [place]. I will check culture and sensitivities tomorrow when I am there and change therapy if needed, otherwise, continue on Pen VK for 5 more days. Lashaun Berger M.D. EITAN/kat cc: documented in this encounter Plan of Treatment Not on file documented as of this encounter Visit Diagnoses Not on filedocumented in this encounter Care Teams Rating Specialist Relationship Specialty Start Date End Date Frw, None PCP - General 05/05/00 12/11/16 documented as of this encounter
--- OUTSIDE RECORDS SUMMARY | 2023-10-23 05:55 | XMS_ITS | Clinical Summary ---
Author Organization [facility] Address [place], [place] [address] Care Team Providers Care Printed Circuit Board Designer Name Role Phone Nette Gaspar GATE ATTENDANT Primary Care Provider Audrey vailable Allergies No [...] this topic Medical Devices Implanted Type Area Roller Man Device Identifier Shelf Expiration Date Model / Serial / Lot [id number] 1-4mm 30cc Medtronic Chips Canclls Freeze Dried Implanted:Qty: 1 on 12/14/2019 by Ricardo Humphrey MD at [facility] Explanted:at [facility] (Quantity not on file) N/A: Spine Medtronic Spine/Ortho 06/09/2024 [id number] / [id number] / Bone Matrix 5cc Jacob Plus Paste Dbm - [id number] Implanted:Qty: 1 on 12/14/2019 by Ricardo Humphrey MD at [facility] Explanted:at [facility] (Quantity not on file) N/A: Spine Medtronic Spine/Ortho 07/05/2021 [id number] / [id number] / Spacer Lmbr Md 14mm 8deg Perimeter Alif Peek - [id number] Implanted:Qty: 1 on 12/14/2019 by Ricardo Humphrey MD at [facility] N/A: Spine Medtronic Spine/Ortho 02/14/2021 [id number] / / [id number] Set Screw Lmbr Ant 5.5mm Solera Break Off - [id number] Implanted:Qty: 4 on 12/14/2019 by Ricardo Humphrey MD at [facility] N/A: Spine Medtronic Spine/Ortho [id number] / / Shankar Lmbr 30x5.5mm Solera 5.5/6cvd Titnm - [id number] Implanted:Qty: 1 on 12/14/2019 by Ricardo Humphrey MD at [facility] N/A: Spine Medtronic Spine/Ortho [id number] # / / Shankar Lmbr 35x5.5mm Solera 5.5/6cvd Titnm - [id number] Implanted:Qty: 1 on 12/14/2019 by Ricardo Humphrey MD at [facility] N/A: Spine Medtronic Spine/Ortho [id number] # / / Screw Lmbr Post 6.5x40mm Solera 5.5/6 Va Cocr - [id number] Implanted:Qty: 1 on 12/14/2019 by Ricardo Humphrey MD at [facility] N/A: Spine Medtronic Spine/Ortho [id number]# / / Screw Lmbr Post 6.5x45mm Solera 5.5/6 Va Cocr - [id number] Implanted:Qty: 1 on 12/14/2019 by Ricardo Humphrey MD at [facility] N/A: Spine Medtronic Spine/Ortho [id number]# / / Screw Lmbr Post 5.5x40mm Solera 5.5/6 Va Cocr - [id number] Implanted:Qty: 2 on 12/14/2019 by Ricardo Humphery MD at [facility] N/A: Spine Medtronic Spine/Ortho [id number]# / / Procedures Procedure Name Priority Date/Time Associated Diagnosis Comments HPV THIN PREP Timed 08/22/2013 4:00 PM CDT from Last 3 Months or Most Recently Relevant to Health Maintenance Results * HPV THIN PREP (08/22/2013 4:00 PM CDT) SPECIMEN/SOURC E Thin prep [facility] HPV RESULTS High Risk HPV Negative. HPV types 16,18,31, 33,35,39, 45,51,52, 56,58,59, 66 and 68 DNA were undetecta ble or below the pre-set threshold . Methodolo gy: Jennifer Gilbert 4800 HPV Test [facility] 08/22/2013 4:00 PM CDT 08/23/2013 1:48 PM CDT Lashaun Berger MD MICROBIOLOGY [facility] [place]NAL ZIP [id number] [place] [id number] from Last 3 Months or Most Recently [...] 12:32 PM 11/29/2014 6:52 PM Care Teams Printed Circuit Board Designer Relationship Specialty Start Date End Date Nette Gaspar GATE ATTENDANT [address] [place] [address] PCP - General Emergency Medicine 08/28/21
--- OUTSIDE RECORDS SUMMARY | 2023-10-23 05:55 | XMS_ITS | Referral Summary ---
Author Organization [facility] Address [address] [place] [address]. [place] [address] Care Team Providers Care Operator Catalyst Concentration Name Role Phone No Ref-Primary, Physician Primary [...] of Treatment Not on file Care Teams Operator Catalyst Concentration Relationship Specialty Start Date End Date No Ref-Primary, Physician PCP - General 06/09/17
--- OUTSIDE RECORDS SUMMARY | 2023-10-23 05:55 | XMS_ITS | Clinical Summary ---
Author Organization [facility] Address [address] [place] [address]. [place] [address] Care Team Providers Care Presser Automatic Name Role Phone No Ref-Primary, Physician Primary [...] of Treatment Not on file Care Teams Presser Automatic Relationship Specialty Start Date End Date No Ref-Primary, Physician PCP - General 06/09/17
--- OUTSIDE RECORDS SUMMARY | 2023-10-23 05:55 | XMS_ITS | Encounter Summary ---
Author Organization [facility] Address [address] [place] [address]. [place] [address] Care Team Providers Care Tar Boiler Name Role Phone Frw, None Primary Care Provider Unavailabl e No Ref-Primary, Physician Primary Care Provider Encounter Details Date Type Department Care Team (Late st Contact Info) Description 12/26/2004 [facility] [place] Inpatient Dept [address] [place] [phone] Frw, Inpatient Provider PHYSICIAN'S DISCHARGE SUMMARY/ORDER SHEET [...] received her Rhogam at 29 weeks in [place]. LABS: She's A negative. Rubella immune. Hepatitis [...] on filedocumented in this encounter Care Teams Tar Boiler Relationship Specialty Start Date End Date Frw, None PCP - General 05/05/00 12/11/16 No Ref-Primary, Physician PCP - General 06/09/17 documented as of this encounter
--- OUTSIDE RECORDS SUMMARY | 2023-10-23 05:55 | XMS_ITS | Encounter Summary ---
Author Organization [facility] Address [address] [place] [address]. [place] [address] Care Team Providers Care Head Still Operator Name Role Phone No Ref-Primary, Physician Primary Care Provider Encounter Details Date Type Department Care Team (Late st Contact Info) Description 06/16/2017 [facility] Medical Advice [address] [phone] Hieu Toledo MD [facility] [address] [place], [place] [id number] Social History Tobacco Use Types Packs/Day Years [...] on filedocumented in this encounter Care Teams Head Still Operator Relationship Specialty Start Date End Date No Ref-Primary, Physician PCP - General 06/09/17 documented as of this encounter
--- OUTSIDE RECORDS SUMMARY | 2023-10-23 05:55 | XMS_ITS | Clinical Summary ---
[facility] Address [address] [address] Care Team Providers Care Site Safety Representative Name Role Phone Nette Gaspar APRN, AUDIT MANAGER Primary Care Provi yuni Unavailable Source Comments [...] for each transition of care or referral. [facility] [employer] Allergies No known active allergies Medications Medication [...] Overview: History of bladder sling surgery at [place] 03/08/12. Displacement of intervertebral disc of cervical [...] Comments Blood Pressure 110/72 06/06/2014 3:31 PM INDUSTRIAL SERVICER Pulse 112 06/06/2014 3:31 PM INDUSTRIAL SERVICER Temperature - - Respiratory Rate - - Oxygen Saturation - - Inhaled Oxygen Concentration - - Weight 55.3 kg (122 lb) 06/06/2014 3:31 PM INDUSTRIAL SERVICER Height 161.3 cm (5' 3.5) 06/06/2014 3:31 PM INDUSTRIAL SERVICER Body Mass Index 21.27 06/06/2014 3:31 PM INDUSTRIAL SERVICER Plan of Treatment Health Maintenance Due Date Last Done Comments Cervical Cancer Screening Due 1975 Colon Cancer Screening Plan Due 1975 Hep C Screening (Preventive Services) 1975 Mammogram 1975 HIV Screening (Preventive Services) 1991 Adult Preventive Visit 11/22/1993 HepB (1) 11/22/1994 Cholesterol 11/22/2020 COVID-19 Vaccine (3 season) 2022 08/31/2020, 08/10/2020 Influenza (#1) 2023 03/24/2020, 12/11/2019, 04/01/2019, Additional history exists Zoster/Shingles (1 of [...] age to complete this topic Care Teams Site Safety Representative Relationship Specialty Start Date End Date Nette Gaspar, JAIL OFFICER, AUDIT MANAGER PCP - General Nurse Practitioner 07/06/18
--- OUTSIDE RECORDS SUMMARY | 2023-10-23 05:56 | XMS_ITS | Data Portability ---
Author Organization [place] [facility] [place] [facility], [facility] Address [address] [place] [address] Assessment No assessment recorded. Plan of Treatment Reminders Order Date Submit Date Provider Last Modified By Organization Details Last Modified Time Details Appointments None recorded. Lab None recorded. Referral physical therapist referral - Please call patient to schedule Pelvic Floor Physical Therapy with Ivanna Ramirez am. Thank you 2021 022 [email or web address] [facility], [address], [place], [address], 16:01:15 Procedures None recorded. Surgeries None recorded. Imaging None recorded. Medication Orders compounded medication 2021 022 [facility], [address], [place], [place], [id number], 17:01:13 Valium 5 mg tablet 2022 023 [facility], [address] [place], [address], 3 13:10:07 Patient TargetsNo targets recorded. Patient Instructions Encounter Date Encounter Id Patient Instructions Last Modified By Organization Details Last Modified Time 11/22/2021 [id number] 46 yo female wit h long hx of pelvic pain, dyspareunia sp sling, then had hysterectomy and many complications and flare and worsneing creating abdominal pain, pelvic pain and pain with relations. S/P sling with some voiding dysfucntion but has no clear interstitial cystitis sx per history. 1. abdominal pain -better but worse with bowels -consider seeing GI, using miralax -could there be adhesions? had adomianl infection and washout wiht [employer] 2. dyspareunia/pelvic pain -not dry -has tenderness near obturators --needs to see PT again, cosnider seeing Ivanna. needs INTERNAL WORK. -can use vagianl valium at night to help with sx. -to stop elmiron, I dont see any clear indicaiton for this. -was on elavil and gained weight -was on gabapentin and when stopped and changed to elmiron no clear change. -has been on keflex for years for uti preveniton, without infections likely related to voiding dysfunction rather than anything else will watch and eventually attempt to stop this -taking oxy which could make her bowels worse, think about stopping this too as pvr 130 and no clear voidng sx for oab. but dont want to do too much at one time to start warm tubs, vaginal valium and PT to stop elmiron if sx worse to call me and re-start gabapentin and see GI. fu 3mo Not available 11/22/2021 16:54:25 03/27/2022 [id number] 46 yo female wit h long hx of pelvic pain, dyspareunia sp sling, then had hysterectomy and many complications and flare and worsneing creating abdominal pain, pelvic pain and pain with relations. S/P sling with some voiding dysfunction but has no clear interstitial cystitis sx per history. 1. abdominal pain ---doing 75% better with PT along -better but worse with bowels -consider seeing GI, using miralax now and better and more regular. -could there be adhesions? had adominal infection and washout wiht [employer] 2. dyspareunia/pelvic pain -not dry -has tenderness near obturators --doing pt and having success -can use vagianl valium at night to help with sx. daily to see if this help -stopped elmiron. -was on elavil and gained weight -was on gabapentin and when stopped and changed to elmiron no clear change. -has been on keflex for years for uti preveniton, without infections likely related to voiding dysfunction rather than anything else will watch and eventually attempt to stop this -taking oxy which could make her bowels worse, think about stopping this too as pvr 130 and no clear voidng sx for oab. but dont want to do too much at one time To start warm tubs, vaginal valium and PT To have video visit in 1mo. Not available 03/27/2022 09:40:03 05/29/2022 [id number] 46 yo female wit h long hx of pelvic pain, dyspareunia sp sling, then had hysterectomy and many complications and flare and worsneing creating abdominal pain, pelvic pain and pain with relations. S/P sling with some voiding dysfunction but has no clear interstitial cystitis sx per history. when she was using VV all the time and doing exercises, was 85% better. now sx declining, to about 60%. 1. abdominal pain ---doing 75% better with PT along -better but worse with bowels -consider seeing GI, using miralax now and better and more regular. -could there be adhesions? had abdominal infection and washout wiht [employer] TE[employer] 2. dyspareunia/pelvic pain -not dry -has tenderness near obturators --doing pt and having success---> -can use vagianl Valium to restart this 3 nights per week -stopped elmiron. -was on elavil and gained weight -was on gabapentin and when stopped and changed to elmiron no clear change. -has been on keflex for years for uti preveniton, without infections likely related to voiding dysfunction rather than anything else will watch and eventually attempt to stop this -taking oxybutnin To start warm tubs, vaginal Valium and PT fu 1mo virtually. Not available 05/29/2022 13:08:12 Reason for Referral Physical Therapist Referral for Pelvic and perineal pain Please call patient to [facility] Thank you Referring Physician: Ingrid Green, Urology, Encounter Date: 11/22/2021 Results Created Date Observation Date Name Description Value Unit Range Abnormal Flag LastModifiedBy Organization Detail LastModifiedTime 11/23/19 22 11/22/2021 UA WITHO UT MICRO PLYMO UTH color-status Yellow yellow Not Available [facility] [address], [place], [address], 11/22/2021 16:24:03 11/23/19 22 11/22/2021 UA WITHO UT MICRO PLYMO UTH clarity-stat us Clear clear Not Available [facility] [address], [place], [address], 11/22/2021 16:24:03 11/23/19 22 11/22/2021 UA WITHO UT MICRO PLYMO UTH glucose-stat us Negati ve mg/dL negati ve Not Available [facility] [address], [place], [address], 11/22/2021 16:24:03 11/23/19 22 11/22/2021 UA WITHO UT MICRO PLYMO UTH bilirubin-ur ine Negati ve negati ve Not Available [facility] [address], [place], [address], 11/22/2021 16:24:03 11/23/19 22 11/22/2021 UA WITHO UT MICRO PLYMO UTH ketones-stat us Negati ve mg/dL negati ve Not Available [facility] [address], [place], [address], 11/22/2021 16:24:03 11/23/19 22 11/22/2021 UA WITHO UT MICRO PLYMO UTH SG-status 1.025 1.00-1 .03 Not Available [facility] [address], [place], [address], 11/22/2021 16:24:03 11/23/19 22 11/22/2021 UA WITHO UT MICRO PLYMO UTH pH-status 6.0 5.00-8 .00 Not Available [facility] [address], [place], [address], 11/22/2021 16:24:03 11/23/19 22 11/22/2021 UA WITHO UT MICRO PLYMO UTH protein-stat us Negati ve mg/dL negati ve Not Available [facility] [address], [place], [address], 11/22/2021 16:24:03 11/23/19 22 11/22/2021 UA WITHO UT MICRO PLYMO UTH urobilinogen -status 0.2 E.U./d L E.U./ dL 0.2 E.U./d L Not Available [facility] [address] [facility] [address], [place], [address], 11/22/2021 16:24:03 11/23/19 22 11/22/2021 UA WITHO UT MICRO PLYMO UTH nitrites-sta tus Negati ve negati ve Not Available [facility] [address], [place], [address], 11/22/2021 16:24:03 11/23/19 22 11/22/2021 UA WITHO UT MICRO PLYMO UTH blood-urine Negati ve negati ve Not Available [facility] [address], [place], [address], 11/22/2021 16:24:03 11/23/19 22 11/22/2021 UA WITHO UT MICRO PLYMO UTH leuko-status Negati ve negati ve Not Available [facility] [address], [place], [address], 11/22/2021 16:24:03 11/23/19 22 11/22/2021 UA WITHO UT MICRO PLYMO UTH specimen type Voided Not Available [facility] [address] [facility] [address], [place], [address], 11/22/2021 16:24:03 11/23/19 22 11/22/2021 UA WITHO UT MICRO PLYMO UTH performed by Sheba Palma Not Available [facility] [address], [place], [address], 11/22/2021 16:24:03 11/23/19 22 11/22/2021 UA WITHO UT MICRO PLYMO UTH total urine volume (mL) 15 /mL Not Available [facility] [address] [facility] [address], [place], [address], 11/22/2021 16:24:03 Result Notes None recorded. Problems Name Status Onset Date Resolution Date Notes Provider Name and Address Organization Details Recorded Time Abnormal uterine bleeding Active 11/23/19 22 Sheba alfonso, [facility] 11/22/2021 13:51:03 Hypothyroidism Active 11/23/19 22 Sheba alfonso, [facility] 11/22/2021 13:51:31 Hyperthyroidism with Shaan disease Active 11/23/19 22 Sheba alfonso, [facility] 11/22/2021 13:51:39 History of urinary tract infection Active 11/23/19 22 Sheba Vargas null, [facility] 11/22/2021 13:51:47 Overactive urinary bladder Active 11/23/19 22 Sheba Vargas null, [facility] 11/22/2021 13:51:54 Prolapsed lumbar intervertebral disc Active 11/23/19 22 Sheba Vargas null, [facility] 11/22/2021 13:52:03 Lumbosacral radiculopathy Active 11/23/19 22 Sheba Vargas null, [facility] 11/22/2021 13:52:16 Problem Notes None recorded. Procedures Surgical History Date Name Laterality Status Provider Name and Address Organization Details Recorded Time 11/23/19 22 In and Out Catheterization- female completed Ingrid Green MD [address], [place], [address], [facility] 11/22/2021 16:48:06 06/23/19 13 Cystoscopy completed Not Available Health Note 05/29/2022 12:38:08 06/23/19 13 Insert bladder catheter completed Not Available Health Note 05/29/2022 12:38:08 03/08/20 12 Repair bladder defect completed Not Available Health Note 05/29/2022 12:38:08 Appendectomy add-on completed Not Available Health Note 05/29/2022 12:38:08 Partial hysterectomy completed Not Available Health Note 05/29/2022 12:38:08 Hernia repair w/mesh completed Not Available Health Note 05/29/2022 12:38:08 Imaging Results None recorded. Procedure Notes None recorded. Medical Equipment None Reported. Allergies No known drug allergies Medications Name Sig Start Date Stop Date Status Note LastModified by Organization Details LastModified Time compounde d medicatio n 1 Supp per vagina QHS at bedtime 2021 active Not Available Not Available Not Avai lable diazepam 5 mg supp INSERT one SUPPOSIT ORY VAGINALL Y AT BEDTIME active Not Available Not Available No t Available oxybutyni n chloride ER 10 mg tablet,ex tended release 24 hr 10mg 1/day active Not Available Not Available No t Available cephalexi n 250 mg capsule 250mg 1/day active Not Available Not Available No t Available gabapenti n 400 mg capsule 03/27 completed HN: Patient reports no longer taking Not Available Not Available Not Available Elmiron 100 mg capsule 100mg 3/day 03/27 completed HN: Patient reports no longer taking Not Available Not Available Not Available levothyro xine 75 mcg tablet active Not Available Not Available Not Available diazepam 5 mg tablet Take 1 tablet every day by oral route as directed . active Not Available Not Available No t Available Vitals Date Recorded Body mass index (BMI) Body height Provider Name and Address Organization Details Last Updated DateTime 11/22/2021 22.5 kg/m2 160.02 cm Not Available Health Note 16:10:34 Date Recorded Body weight Provider Name an d Address Organization Details Last Updated DateTime 11/22/2021 23315.23 g Sheba Vargas [place] [facility] 11/22/2021 16:21:22 Date Recorded Body mass index (BMI) Body weight Body height Provider Name and Address Organization Details Last Updated DateTime 03/27/2022 22 kg/m2 19595.33971 59684 g 160.02 cm Not Available [facility] Note 03/27/2022 09:17:33 Date Recorded Body height Provider Name an d Address Organization Details Last Updated DateTime 05/29/2022 160.02 cm Sheba Saba Vargas [place] - [place] [facility] 05/29/2022 12:42:20 Social History Question Answer Notes LastModified by Organizat ion Details LastModified Time Tobacco Smoking Status Never Smoker Not Available Health Note 05/29/2022 12:38:09 What Is Your Level Of Alcohol Consumption? None [email or web address] Information not available 05/29/2022 What Is Your Level Of Caffeine Consumption? Moderate [email or web address] Information not available 05/29/2022 How Much Tobacco Do You Chew? None [email or web address] Information not available 05/29/2022 Do You Or Have You Ever Used E-cigarettes Or Vape? Never Used Electronic Cigarettes [email or web address] Information not available 05/29/2022 Race White Information n ot available 09/22/2019 Ethnicity Not /Latin o Information not available 11/22/2021 Preferred Language Lao [email or web address] Information not available 11/22/2021 Recreational Drug Use No [email or web address] Information not available 11/22/2021 Marital Status Informati on not available 09/22/2019 What Was The Date Of Your Most Recent Tobacco Screening? 05/29/2022 [email or web address] Information not available 05/29/2022 What Is Your Relationship Status? [email or web address] Information not available 11/22/2021 Do You Or Have You Ever Used Smokeless Tobacco? Never Used Smokeless Tobacco [email or web address] Information not available 05/29/2022 Do You Use Any Illicit Or Recreational Drugs? No [email or web address] Information not available 05/29/2022 On What Date Was Tobacco Cessation Counseling Provided? 05/29/2022 [email or web address] Information not available 05/29/2022 Do You Or Have You Ever Used Any Other Forms Of Tobacco Or Nicotine? No Information not available 11/22/2021 Sex: Unknown Functional Status None recorded. Mental Status None recorded. Family History Relationship Description Onset Age of this Age Resolved Age Notes Notes:Cancer :Grandfather Thyroid problems:Mother GERD:Mother Medical History Condition Response Sexually Transmitted Infection N Diabetes N Bleeding Disorder N High Blood Pressure N Kidney Stones N Cancer N Depression N Lung Disease N High Cholesterol N GERD/Acid Reflux N Heart Disease N Gynecological HistoryNo gynecological history recorded. Obstetrics History GPAL:G 0 P 0 0 0 0 Immunizations Vaccine Type Date Status Provider Name and Address Organization Details Recorded Time SARS-COV-2 (COVID-19) vaccine, UNSPECIFIED 01/11/2021 completed Not Available [facility] 05/29/2022 12:42:40 influenza, unspecified formulation 01/12/2021 completed Not Available [facility] 05/29/2022 12:42:40 Influenza, split virus, quadrivalent, PF 01/20/2014 completed Sheba alfonso, [facility] 03/27/2022 09:24:58 Hep B, adult 04/29/1995 completed Sheba alfonso, [facility] 03/27/2022 09:24:58 Influenza, split virus, quadrivalent, PF [facility]20[facility] 09:24:58 Hep B, adult 12/12/1994 [facility]/27/2022 09:24:58 Td (adult), 5 Lf tetanus toxoid, preservative free, adsorbed 06/15/1990 [facility]/27/2022 09:24:58 Tdap 02/19/2018 [facility]/2022 09:24:58 COVID-19, mRNA, LNP-S, PF, 30 mcg/0.3 mL dose 08/31/2020 [facility]/27/2022 09:24:58 Hep B, adult 11/07/1994 [facility]/27/2022 09:24:58 Influenza, split virus, trivalent, preservative 02/10/2005 [facility]/27/2022 09:24:58 Influenza, split virus, trivalent, preservative 12/26/2011 [facility] 03/27/2022 09:24:58 Novel [id number]-[id number], nasal 02/05/2009 [facility] 03/27/2022 09:24:58 MMR 02/11/1977 completed Shebadarcy Vargas null, [facility] 03/27/2022 09:24:58 Influenza, split virus, quadrivalent, PF 01/21/2021 completed Sheba Vargas null, [facility] 03/27/2022 09:24:58 Influenza, split virus, trivalent, PF 01/28/2011 completed Sheba Vargas null, [facility] 03/27/2022 09:24:58 COVID-19, mRNA, LNP-S, PF, 30 mcg/0.3 mL dose 08/10/2020 completed Sheba Vargas null, [facility] 03/27/2022 09:24:58 MMR 06/19/1992 completed Sheba Vargas null, [facility] 03/27/2022 09:24:58 DTaP 07/10/2006 completed Sheba alfonso, [facility] 03/27/2022 09:24:58 Influenza, split virus, quadrivalent, PF 04/01/2019 completed Sheba Vargas null, [facility] 03/27/2022 09:24:58 Influenza, split virus, quadrivalent, PF 01/14/2016 completed Sheba alfonso, [facility] 03/27/2022 09:24:58 Influenza, split virus, quadrivalent, PF 01/08/2015 completed Sheba Vargas null, [facility] 03/27/2022 09:24:58 Influenza, split virus, quadrivalent, PF 03/24/2020 completed Sheba Vargas null, [facility] 03/27/2022 09:24:58 Influenza, split virus, quadrivalent, PF 01/19/2017 completed Sheba Vargas null, [facility] 03/27/2022 09:24:58 Past Encounters Encounter ID Performer Location Encounter Start Date Encounter Closed Date Diagnosis/Indication Diagnosis SNOMED-CT Code [id number] Ingrid Green MD [address] [address] 11/22/2021 16:10:28 11/22/2021 17:08:16 Pelvic and perineal pain [id number] Dyspareunia 97650342 Abdominal pain 96606124 Myalgia of pelvic floor [id number] MD [facility]ab[facility]jot [facility] [address] [place] [id number] 03/27/2022 09:17:28 03/27/2022 09:44:20 Pelvic and perineal pain 596353255 Dyspareunia 88263922 Abdominal pain 06931197 Myalgia of pelvic floor 256898551 [id number] MD Shiv Hermany [address] [place] [address] 05/29/2022 12:41:31 06/02/2022 15:33:38 Pelvic and perineal pain 118744909 Dyspareunia 13735502 Abdominal pain 64238354 Myalgia of pelvic floor 272277853 Health Concerns Section Related Observation LastModified by Organization Detai ls LastModified Time None Recorded Concern Status LastModified by Organization Details LastModified Time None Recorded Advance Directives Directive None Recorded Payers Encounter Date Sequence Insurance Name Policy Number Policy Juarez Covered Member ID Juarez Member ID Guarantor Name 11/22/2021 1 [place] [id number] Ingrid To [id number] Ingrid To 03/27/2022 1 [place] [id number] Ingrid To [id number] Ingrid To 05/29/2022 1 [place] [id number] Ingrid Baudilio Zuleika [id number] Ingrid To Notes Date Note Type Note Provider Name and Address Organization Details Recorded Time 11/22/2021 text/html HPI Notes: 46 yo female here for evaluation of bladder concerns. 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 hx of TVT with [facility] 2011 with retention after had to cath for a while was seen with Dr Thomson, notes reviewed in 2013 and discussion on Interstim at the time. also was having some UTIs. had hx of pelvic pain and dyspareunia at the time these issues did get better over the course of time but then got worse then she s/p hysterectomy for large fibroid and DUB-lap hysterectomy in [place]. had hernia from her incisional port postop and then a few days later had vagianl bleeding, had need for vagianl cuff repair, then had exlap and had alot of infection abdominally. since then with major abdominal pains. hx of L4-5 disc herniation --sp fusion a few months before her hysterctomy 2 yrs ago. 1. abdominal pain feels that there is knife cutting across her body some of the time things it can be related to the need to have a bowel movement. nothing else bring its about maybe gas. no change with full or dempty bladder with the pain BMs every 3 days, did take take colace in the past, and it softned it but did not help with being regular. not very hard. has not taken miralax before and her bowels have not changed. has not seen GI. has not had colonoscopy. did Cologuard. 2.also noted with significant pain with relations seeing PT, stopped as she got to the point where she felt that she could not do more. did some but not alot of internal manipualtion, did not use a wand. has not used valium vaginally. has ovaries, not on estrogren no clear driness pain is with penetration, all positions 3. bladder sx DF 4 times per on avg nocturia 0 leakage none on ditropan 5mg ER 4. hx of UTIs has been on keflex 250mg for years last infection 2-3 yrs ago has been treated for possible IC elmiron 100mg gabapetin 400mg TID, failed elavil due to wt gain seen with Gianna Hung for PT at [facility] Overactive Bladder Pathway Questionnaire: Uses the restroom: 5 times per day Uses the restroom (nighttime): every 8 hours Accidents: 0 per day Pads: using 0 per day Happy with current treatment plan: no Urogenital Distress Inventory (PATRICK-6): [0]Frequent urination: Not at All [0] Urine leakage related to the feeling of urgency: Not at All [0] Urine leakage related to physical activity, coughing or sneezing: Not at All [0] Small amounts of urine leakage (drops): Not at All [0] Difficulty emptying your bladder: Not at All [2] Pain or discomfort in the lower abdominal or genital area: Moderately Incontinence Impact Questionnaire (IIQ-7): [0] Ability to do resource economist (cooking, housecleaning): Not at All [0] Physical recreation such as walking, or other exercise: Not at All [0] Ability to attend entertainment activities (movie, concerts): Not at All [0] Ability to travel by car more than 30 minutes from home: Not at All [0] Participation in social activities outside your home: Not at All [1] Emotional health (nervousness, depression, etc): Slightly [2] [place] frustrated: Moderately Ingrid Green MD [address], [place], [address], [facility] 11/22/2021 16:55:39 03/27/2022 text/html HPI Notes: 46 yo female here for evaluation of bladder concerns. 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 hx of TVT with [facility] 2011 with retention after had to cath for a while was seen with Dr Thomson, notes reviewed in 2012 and discussion on Interstim at the time. also was having some UTIs. had hx of pelvic pain and dyspareunia at the time these issues did get better over the course of time but then got worse then she s/p hysterectomy for large fibroid and DUB-lap hysterectomy in [place]. had hernia from her incisional port postop and then a few days later had vagianl bleeding, had need for vagianl cuff repair, then had exlap and had alot of infection abdominally. since then with major abdominal pains. hx of L4-5 disc herniation --sp fusion a few months before her hysterectomy 2 yrs ago. 1. abdominal pain feels that there is knife cutting across her body some of the time things it can be related to the need to have a bowel movement. nothing else bring its about maybe gas. no change with full or dempty bladder with the pain BMs every 3 days, did take take colace in the past, and it softned it but did not help with being regular. not very hard. has not taken miralax before and her bowels have not changed. has not seen GI. has not had colonoscopy. did Cologuard. 2.also noted with significant pain with relations seeing PT, stopped as she got to the point where she felt that she could not do more. did some but not alot of internal manipualtion, did not use a wand. has not used valium vaginally. has ovaries, not on estrogren no clear driness pain is with penetration, all positions 3. bladder sx DF 4 times per on avg nocturia 0 leakage none on ditropan 5mg ER 4. hx of UTIs has been on keflex 250mg for years last infection 2-3 yrs ago has been treated for possible IC elmiron 100mg gabapetin 400mg TID, failed elavil due to wt gain seen with Gianna Hung for PT at [facility] Overactive Bladder Pathway Questionnaire: Uses the restroom: 5 times per day Uses the restroom (nighttime): every 8 hours Accidents: 0 per day Pads: using 0 per day Happy with current treatment plan: no Urogenital Distress Inventory (PATRICK-6): [0]Frequent urination: Not at All [0] Urine leakage related to the feeling of urgency: Not at All [0] Urine leakage related to physical activity, coughing or sneezing: Not at All [0] Small amounts of urine leakage (drops): Not at All [0] Difficulty emptying your bladder: Not at All [2] Pain or discomfort in the lower abdominal or genital area: Moderately Incontinence Impact Questionnaire (IIQ-7): [0] Ability to do resource economist (cooking, housecleaning): Not at All [0] Physical recreation such as walking, or other exercise: Not at All [0] Ability to attend entertainment activities (movie, concerts): Not at All [0] Ability to travel by car more than 30 minutes from home: Not at All [0] Participation in social activities outside your home: Not at All [1] Emotional health (nervousness, depression, etc): Slightly [2] [place] frustrated: Moderately 03-27-22 seeing Ivanna for PT. doing exercises and stretches. valium vaginally abd pain is better by 75% pain with voiding and abd pain is 75% better pain with relations ---still an issue--muscles and levators tight. has only used the valium a few times. Overactive Bladder Pathway Questionnaire: Uses the restroom: 5 times per day Uses the restroom (nighttime): every 8 hours Accidents: 0 per day Pads: using 0 per day Symptoms since last appointment: 40% Better Happy with current treatment plan: no Urogenital Distress Inventory (PATRICK-6): [0]Frequent urination: Not at All [0] Urine leakage related to the feeling of urgency: Not at All [0] Urine leakage related to physical activity, coughing or sneezing: Not at All [1] Small amounts of urine leakage (drops): Slightly [1] Difficulty emptying your bladder: Slightly [2] Pain or discomfort in the lower abdominal or genital area: Moderately Incontinence Impact Questionnaire (IIQ-7): [0] Ability to do resource economist (cooking, housecleaning): Not at All [0] Physical recreation such as walking, or other exercise: Not at All [0] Ability to attend entertainment activities (movie, concerts): Not at All [0] Ability to travel by car more than 30 minutes from home: Not at All [0] Participation in social activities outside your home: Not at All [1] Emotional health (nervousness, depression, etc): Slightly [1] [place] frustrated: Slightly Ingrid Green MD [address] [facility] [address], [place], [address], [facility] 03/27/2022 09:40:30 05/29/2022 text/html HPI Notes: since last seen --has not continually met with ivanna using VV daily, this did seem to help her and she backed off, and now she has used that some of the pain is coming back. This visit was conducted using video conferencing technology due to the COVID-19 crisis. Prior to conducting our video e-health visit, the patient and I discussed the risks, benefits and alternatives to video visits including but not limited to inadequate imaging resolution, interrupted video visits due to technological limitations, delays in medical evaluation and treatment due to deficiencies or failures of equipment, failure of security protocols resulting in a breach of privacy of personal medical information and a lack of access to complete medical records resulting in not fully informed decisions. The patient elected to proceed with the video visit Ingrid Green MD [address] [place] [address],[address], [place], [address], [facility] 05/29/2022 13:10:27 OBGyn Episode No OBEpisode recorded.
== END 2023-10-22 14:59 | disposition home or self-care (01) ==
LOC: NFLDREF 10-23 05:52
PROVIDERS: PCP Nurse Practitioner Family; Referring Provider Nurse Practitioner Family; Visit Provider Nurse Practitioner Family
DX: D64.9 Anemia, unspecified (principal)
CPT/HCPCS: 82607; 82728; 83540; 83550; 85045; 86364

== ENCOUNTER 2024-01-11 11:30 | Outpatient (CLI) | payer BC, SELFPAY ==
--- OUTSIDE RECORDS SUMMARY | 2024-01-11 11:36 | XMS_ITS | Encounter Summary ---
Author Organization [facility] Address [address] [place] [address]. [place] [address] Care Team Providers Care Cage Fighter Name Role Phone Frw, None Primary Care Provider Unavailabl e Encounter Details Date Type Department Care Team (Late st Contact Info) Description 11/26/2008 3:[address] [facility] in [address] [phone] Jefferson Trejo MD Social History Tobacco Use [...] of this encounter Progress Notes * Interface, Roll Form Operator - 11/28/2008 10:18 AM CDT DISCHARGE [...] as needed for pain as directed on jsvq-epx-xniwqif bottles. DISMISSAL INSTRUCTIONS: Complete pelvic rest x6 weeks. She is to see me in [place] at 6 weeks for a exam. Will check a TSH. If she has any other questions or concerns, she is to contact us or followup. Lashaun Berger M.D. cc: Lashaun LAIRD/[facility] * Interface, Roll Form Operator - 11/26/2008 12:17 PM CDT HISTORY [...] third and thus she proceeded directly to [place]. Our due date is November 19, 2008. [...] EXTREMITIES: No edema. SKIN: Without any rash. DIRECTOR ENGINEERING: Cervix is about 6-7 centimeters, almost 90% [...] infection: The culture is currently pending at [place]. I will check culture and sensitivities tomorrow when I am there and change therapy if needed, otherwise, continue on Pen VK for 5 more days. Lashaun Berger M.D. EITAN/kat cc: documented in this encounter Plan of Treatment Not on file documented as of this encounter Visit Diagnoses Not on filedocumented in this encounter Care Teams Cage Fighter Relationship Specialty Start Date End Date Frw, None PCP - General 05/05/00 12/11/16 documented as of this encounter
--- OUTSIDE RECORDS SUMMARY | 2024-01-11 11:36 | XMS_ITS | Encounter Summary ---
Author Organization [facility] Address [address] [place] [address]. [place] [address] Care Team Providers Care Print Buyer Name Role Phone No Ref-Primary, Physician Primary Care Provider Encounter Details Date Type Department Care Team (Late st Contact Info) Description 06/16/2017 [facility] Medical Advice [address] [phone] Hieu Toledo MD [facility] [address] [place], [place] [address] Social History Tobacco Use Types Packs/Day Years [...] on filedocumented in this encounter Care Teams Print Buyer Relationship Specialty Start Date End Date No Ref-Primary, Physician PCP - General 06/09/17 documented as of this encounter
--- OUTSIDE RECORDS SUMMARY | 2024-01-11 11:36 | XMS_ITS | Clinical Summary ---
Author Organization [facility] Address [address] [place] [address]. [place] [address] Care Team Providers Care Senior Account Representative Name Role Phone No Ref-Primary, Physician Primary [...] of Treatment Not on file Care Teams Senior Account Representative Relationship Specialty Start Date End Date No Ref-Primary, Physician PCP - General 06/09/17
--- OUTSIDE RECORDS SUMMARY | 2024-01-11 11:36 | XMS_ITS | Referral Summary ---
Author Organization [facility] Address [address] [place] [address]. [place] [address] Care Team Providers Care Turf Grower Name Role Phone No Ref-Primary, Physician Primary [...] of Treatment Not on file Care Teams Turf Grower Relationship Specialty Start Date End Date No Ref-Primary, Physician PCP - General 06/09/17
--- OUTSIDE RECORDS SUMMARY | 2024-01-11 11:36 | XMS_ITS | Encounter Summary ---
Author Organization [place] Address [address] [place] [address]. [place] [address] Care Team Providers Care Behavioral Therapy Coordinator Name Role Phone Frw, None Primary Care Provider Unavailabl e No Ref-Primary, Physician Primary Care Provider Encounter Details Date Type Department Care Team (Late st Contact Info) Description 12/26/2004 [facility] in [place] Inpatient Dept [address] [place] [phone] Frw, Inpatient Provider PHYSICIAN'S DISCHARGE SUMMARY/ORDER SHEET [...] received her Rhogam at 29 weeks in [place]. LABS: She's A negative. Rubella immune. Hepatitis [...] on filedocumented in this encounter Care Teams Behavioral Therapy Coordinator Relationship Specialty Start Date End Date Frw, None PCP - General 05/05/00 12/11/16 No Ref-Primary, Physician PCP - General 06/09/17 documented as of this encounter
--- OUTSIDE RECORDS SUMMARY | 2024-01-11 11:37 | XMS_ITS | Clinical Summary ---
Author Organization [facility] Address [address], [place] [address] Care Team Providers Care Steam Brush Operator Name Role Phone Nette Gaspar APRN, MEMORY CARE PROGRAM DIRECTOR Primary Care Provi yuni Unavailable Source Comments [...] for each transition of care or referral. [facility] All[facility]ies No known active allergies Medications Medication [...] Shaan's thyroiditis Urinary incontinence in female 06/06/2014 Overview (11/16/2015): History of bladder sling surgery at [place] 03/08/12. Displacement of intervertebral disc of cervical region 06/06/2014 Overview (12/03/2016): Herniated disc Social History Tobacco Use Types [...] Comments Blood Pressure 110/72 06/06/2014 3:31 PM PUBLIC TRANSIT TROLLEY DRIVER Pulse 112 06/06/2014 3:31 PM PUBLIC TRANSIT TROLLEY DRIVER Temperature - - Respiratory Rate - - Oxygen Saturation - - Inhaled Oxygen Concentration - - Weight 55.3 kg (122 lb) 06/06/2014 3:31 PM PUBLIC TRANSIT TROLLEY DRIVER Height 161.3 cm (5' 3.5) 06/06/2014 3:31 PM PUBLIC TRANSIT TROLLEY DRIVER Body Mass Index 21.27 06/06/2014 3:31 PM PUBLIC TRANSIT TROLLEY DRIVER Plan of Treatment Health Maintenance Due Date Last Done Comments Cervical Cancer Screening Due 1975 Colon Cancer Screening Plan Due 1975 Hep C Screening (Preventive Services) 1975 Mammogram 1975 HIV Screening (Preventive Services) 1991 Adult Preventive Visit 11/22/1993 HepB (1) 11/22/1994 Cholesterol 11/22/2020 COVID-19 Vaccine ( season) 2023 08/31/2020, 08/10/2020 Influenza (#1) 2023 03/24/2020, 12/11/2019, [...] age to complete this topic Care Teams Steam Brush Operator Relationship Specialty Start Date End Date Nette Gaspar, DISC JOCKEY, MEMORY CARE PROGRAM DIRECTOR PCP - General Nurse Practitioner 07/06/18
--- OUTSIDE RECORDS SUMMARY | 2024-01-11 11:38 | XMS_ITS | Continuity of Care Document ---
Author Organization [facility] Address [address] [place] [address] Phone Care Team Providers Care Assistant General Manager Name Role Phone Debra Moo ANDRADE Unavailable [...] Incision 0 OFFICE/OUTPATIENT VISIT EST Phone Office/Outpatient Visit,[facility] [place] X-Ray Exam Lower Spine 2-3 Views 2018 Postop Followup Visit Postop Followup Visit Low Back Disk Surgery/Decompress 2014 Pa Assist Low Back Disk Surgery/Decompre ss Office/Outpatient Visit,[facility], [facility] 2014 Advance Directives Directive Yes / No Effective Date File Name No Information Encounters Encounter Description Practice Location Reason(s) For Visit Diagnoses Date Provider Providers Copied on Encounter Office/Outpa tient Visit,Est, Mod [facility], [address], [place], [place], [id number] , [place] tel: [phone] [facility] Other spondylosis, lumbar region 3 Debra Cortés. [address], [place], [place], [id number] , [place]. tel: [phone] Referring Provider: Lashaun Berger, [facility] [address], [place], [address]. tel:[phone] Office/Outpa tient Visit,Est, Mod [facility], [address], [place], [place], [id number] , [place] tel: [phone] [facility] [place] Spinal stenosis, lumbar region with neurogenic claudication Sep- 2 Debra Cortés. [address], [facility] [place], [id number] , [place]. tel: [phone] Referring Provider: Lashaun Berger, [place] [address], [place], [address]. tel: [phone] Office/Outpa tient Visit,Est, Mod [facility], [address], [place], [place], [id number] , [place] tel: [phone] [facility] [place] Spinal stenosis, lumbar region with neurogenic claudication Sep-3 0 1 Eckroth Moo. [address] [place] [address] [address], [place], [id number] , [place]. tel: [phone] Referring Provider: Lashaun Berger, [place] [address], [place], [address]. tel: [phone] Office/Outpa tient Visit,Est, Mod [facility], [address], [place], [place], [id number] , [place] tel: [phone] [facility] [place] Low back pain Mar-0 1 Eckrlayo Cortés. [address], [place], [place], [id number] , [place]. tel: [phone] Referring Provider: Lashaun Berger, [place] [address], [place], [address]. tel: [phone] [facility], [address], [place], [place], [id number] , [place] tel: [phone] [facility] [place] Encounter for follow-up examination after completed treatment for conditions other than malignant neoplasm Nov-3 0 Eckroth Moo. [address], [place], [place], [id number] , [place]. tel: [phone] Referring Provider: Lashaun Berger, [place] [address], [place], [address]. tel: [phone] [facility], [address], [place], [place], [id number] , [place] tel: [phone] [facility] [place] Encounter for follow-up examination after completed treatment for conditions other than malignant neoplasm 0 Mehbod Amir. [facility] [place], [address], [place], [place], [id number] , [place]. tel: [phone] Referring Provider: Lashaun Berger, [facility] [address], [place], [address]. tel: [phone] [facility], [address], [place], [place], [address] , [place] tel: [phone] [facility] No Information - 0 Eckroth Moo. [address] [place] [address] [address], [place], [place], [address] , [place]. tel: [phone] Referring Provider: Lashaun Berger, [facility] [address], [place], [address]. tel:[phone] [facility], [address], [place], [place], [address] , [place] tel: [phone] [facility] No Information 0 Mehbod Amir. [facility] [place], [address], [place], [place], [id number] , [place]. tel: [phone] Referring Provider: Lashaun Berger, [facility] [address], [place], [address]. tel: [phone] OFFICE/OUTPA TIENT VISIT EST Phone [facility], [address], [place], [place], [id number] , [place] tel: [phone] [facility] No Information 0 Mehbod Amir. [facility] [place], [address], [place], [place], [address] , [place]. tel: [phone] Referring Provider: Lashaun Berger, [facility] [address], [place], [address]. tel:[phone] Office/Outpa tient Visit,New, Mod [facility], [address], [place], [place], [id number] , [place] tel: [phone] [facility] Radiculopathy, lumbar region 9 Jnfiona Cortés. [address], [place], [id number] , [place]. tel: [phone] [facility], [address], [place], [id number] , [place] tel: [phone] [facility] Radiculopathy, lumbar region 5 Mehbod Amir. [facility], [address], [place], [place], [address] , [place]. tel: [phone] [facility], [address], [place], [place], [address] , [place] tel: [phone] [facility] Displacement of intervertebral disc, site unspecified, without myelopathyLumbar Disc Displacement Mehbod Amir. [facility], [address] [place] [address] [address], [place], [place], [id number] , [place]. tel: [phone] [facility], [address], [place], [place], [address] , [place] tel: [phone] [facility] No Information Mehbod Amir. [facility], [address], [place], [place], [address] , [place]. tel: [phone] Office/Outpa tient Visit,New, Mod [facility], [address], [place], [address] , [place] tel: [phone] [facility] Displacement of intervertebral disc, site unspecified, without myelopathyLumbar radiculopathyHer niated lumbar nucleus pulposus 5 Mehbod Amir. [facility], [address], [place], [place], [address] , [place]. tel: [phone] Family History Family Member Type Diagnosis Age At Onset No Information Payers Payer name Insurance type Covered green party ID Authoriza tion(s) [employer] [facility] [id number] [facility] [id number] [facility] [id number] Social History Type Description Quantity Date Captured [...]
--- OUTSIDE RECORDS SUMMARY | 2024-01-11 11:38 | XMS_ITS | Clinical Summary ---
Author Organization [facility] Address [place], [place] [address] Care Team Providers Care Pai Gow Manager Name Role Phone Nette Gaspar BUSINESS CONSULT Primary Care Provider Audrey vailable Allergies No [...] 11/21/2014 Hx: UTI (urinary tract infection) 11/21/2014 Overview (11/21/2014): Frequent upper respiratory infection, last 1 years ago, controlled macrodantin OAB (overactive bladder) 11/21/2014 Overview (11/21/2014): Ditropan daily L4-5 disk herniation 09/01/2014 Lumbosacral [...] for age 45-75 11/22/2020 COVID-19 vaccine series (2023- season) 2023 08/31/2020, 08/10/2020 Influenza for age 9-49 12/13/2023 Pneumococcal series for age 6-64 Aged Out No longer eligible b ased on patient's age to complete this topic Medical Devices Implanted Type Area Power Generation Technician Device Identifier Shelf Expiration Date Model / Serial / Lot [id number] 1-4mm 30cc Medtronic Chips Canclls Freeze Dried Implanted:Qty: 1 on 12/14/2019 by Ricardo Humphrey MD at [facility] Explanted:at [facility] (Quantity not on file) N/A: Spine Medtronic Spine/Ortho 06/09/2024 [id number] / [id number] / Bone Matrix 5cc Jacob Plus Paste Dbm - [id number] Implanted:Qty: 1 on 12/14/2019 by Ricardo Humphrey MD at [facility] Explanted:at [facility] (Quantity not on file) N/A: Spine Medtronic Spine/Ortho 07/05/2021 [id number] / [id number] / Spacer Lmbr Md 14mm 8deg Perimeter Alif Peek - [id number] Implanted:Qty: 1 on 12/14/2019 by Ricardo Humphrey MD at [facility] N/A: Spine Medtronic Spine/Ortho 02/14/2021 [id number] / / [id number] Set Screw Lmbr Ant 5.5mm Solera Break Off - [id number] Implanted:Qty: 4 on 12/14/2019 by Ricardo Humphrey MD at [facility] N/A: Spine Medtronic Spine/Ortho [id number] / / Shankar Lmbr 30x5.5mm Solera 5.5/6cvd Titnm - [id number] Implanted:Qty: 1 on 12/14/2019 by Ricardo Humphrey MD at [facility] N/A: Spine Medtronic Spine/Ortho [id number] # / / Shankar Lmbr 35x5.5mm Solera 5.5/6cvd Titnm - [id number] Implanted:Qty: 1 on 12/14/2019 by Ricardo Humphrey MD at [facility] N/A: Spine Medtronic Spine/Ortho [id number] # / / Screw Lmbr Post 6.5x40mm Solera 5.5/6 Va Cocr - [id number] Implanted:Qty: 1 on 12/14/2019 by Ricardo Humphrey MD at [facility] N/A: Spine Medtronic Spine/Ortho [id number]# / / Screw Lmbr Post 6.5x45mm Solera 5.5/6 Va Cocr - [id number] Implanted:Qty: 1 on 12/14/2019 by Ricardo Humphrey MD at [facility] N/A: Spine Medtronic Spine/Ortho [id number]# / / Screw Lmbr Post 5.5x40mm Solera 5.5/6 Va Cocr - [id number] Implanted:Qty: 2 on 12/14/2019 by Ricardo Humphrey MD at [facility] N/A: Spine Medtronic Spine/Ortho [id number] 0# / / Procedures Procedure Name Priority Date/Time Associated Diagnosis Comments HPV HIGH RISK Timed 08/22/2013 4:00 PM CDT from Last 3 Months or Most Recently Relevant to Health Maintenance Results * HPV THIN PREP (08/22/2013 4:00 PM CDT) SPECIMEN/SOURC E Thin prep [facility] HPV RESULTS High Risk HPV Negative. HPV types 16,18,31, 33,35,39, 45,51,52, 56,58,59, 66 and 68 DNA were undetecta ble or below the pre-set threshold . Methodolo gy: Jennifer Gilbert 4800 HPV Test [facility] 08/22/2013 4:00 PM CDT 08/23/2013 1:48 PM CDT Lashaun Berger MD MICROBIOLOGY [facility] INTERNAL ZIP [address] [address] [facility] [place] [address] from Last 3 Months or Most Recently [...] 12:32 PM 11/29/2014 6:52 PM Care Teams Pai Gow Manager Relationship Specialty Start Date End Date Nette Gaspar NP [address] [address] PCP - General Emergency Medicine 08/28/21
== END 2024-01-11 11:31 | disposition home or self-care (01) ==
LOC: KYNREF 11:33
PROVIDERS: PCP Nurse Practitioner Family; Visit Provider Nurse Practitioner Family
DX: N95.1 Menopausal and female climacteric states (principal)
CPT/HCPCS: 83001

== ENCOUNTER 2024-11-18 10:37 | Outpatient (CLI) | payer OTHER, SELFPAY | END 2024-11-18 10:38 | disposition home or self-care (01) | PROVIDERS: PCP Nurse Practitioner Family; Visit Provider Nurse Practitioner Family | DX: D64.9 Anemia, unspecified (principal); E03.9 Hypothyroidism, unspecified; Z13.0 Encounter for screening for diseases of the blood and blood-forming organs and certain disorders involving the immune mechanism | CPT/HCPCS: 84443; 85025 ==

== ENCOUNTER 2025-03-21 08:11 | Outpatient (CLI) | payer OTHER, SELFPAY ==
--- NOTE | 2025-03-21 08:15 | CRLHL7_ITS ---
For Patients: As a result of the Century Cures Act, medical imaging exams and procedure reports are released immediately into your electronic medical record. You may view this report before your referring provider. If you have questions, please contact your health care provider. BILATERAL DIGITAL SCREENING MAMMOGRAM WITH COMPUTER-AIDED DETECTION AND TOMOSYNTHESIS CLINICAL HISTORY: Routine screening exam. COMPARISON: 10/12/2023, 05/03/2021, 03/17/2018. TECHNIQUE: Digital BILATERAL mammogram in CC and MLO projections including computer-aided detection (CAD). Tomosynthesis was used in this interpretation. BREAST COMPOSITION: There are scattered areas of fibroglandular density. FINDINGS: RIGHT Breast: No suspicious findings. LEFT Breast: Nodular density in the upper LEFT breast. IMPRESSION: LEFT breast asymmetry/mass. RECOMMENDATIONS: Additional mammographic views of the LEFT breast including 3D spot-compression CC/MLO, 3D true lateral. LEFT breast ultrasound may also be required. The [facility] will contact the patient. A lay language report of this examination will be provided to the patient. BI-RADS Category 0: Incomplete: Need Additional Imaging Evaluation Dictated by Fernando Phillip MD @ 03/21/2025 9:55:02 AM /sp SP/Dictated by: Fernando Phillip MD @ 03/21/2025 9:55:00 AM (Electronically Signed)
== END 2025-03-21 08:12 | disposition home or self-care (01) ==
LOC: MAMMO 08:12
PROVIDERS: PCP Nurse Practitioner Family; Visit Provider Nurse Practitioner Family
DX: Z12.31 Encounter for screening mammogram for malignant neoplasm of breast (principal); N63.20 Unspecified lump in the left breast, unspecified quadrant
CPT/HCPCS: 77063; 77067

== ENCOUNTER 2025-04-11 10:45 | Outpatient (CLI) | payer OTHER, SELFPAY ==
--- NOTE | 2025-04-11 10:45 | CRLHL7_ITS ---
For Patients: As a result of the Cures Act, medical imaging exams and procedure reports are released immediately into your electronic medical record. You may view this report before your referring provider. If you have questions, please contact your health care provider. LEFT BREAST DIAGNOSTIC MAMMOGRAM WITH TOMOSYNTHESIS LEFT BREAST ULTRASOUND CLINICAL HISTORY: LEFT breast mass/asymmetry. COMPARISON: 03/21/2025, 10/12/2023, 05/03/2021. TECHNIQUE: Digital LEFT mammogram in 3 projections. Tomosynthesis was used in this interpretation. Real-time ultrasound imaging of LEFT breast with imaging documentation. Scanning was performed by both the technologist and the radiologist. BREAST COMPOSITION: The breasts are heterogeneously dense, which may obscure small masses. FINDINGS: Additional mammogram images LEFT breast submitted. Persistent nodular density is present within the upper inner quadrant. No architectural distortion or suspicious calcifications. Targeted LEFT breast ultrasound performed at 11 o`clock 8 cm from the nipple. In this location, there is a benign cyst which measures 8 x 5 x 8 millimeters. IMPRESSION: Benign cyst LEFT breast 11 o`clock 8 cm from the nipple measuring 8 millimeters. No evidence of malignancy. RECOMMENDATIONS: Routine screening mammography. A lay language report of this examination will be provided to the patient. BI-RADS Category 2. Benign. Dictated by Fernando Phillip MD @ 04/11/2025 11:45:53 AM/[facility]/Dictated by: Fernando Phillip MD @ 04/11/2025 11:45:00 AM (Electronically Signed)
--- NOTE | 2025-04-11 11:15 | CRLHL7_ITS ---
For Patients: As a result of the Century Cures Act, medical imaging exams and procedure reports are released immediately into your electronic medical record. You may view this report before your referring provider. If you have questions, please contact your health care provider. PLEASE SEE LEFT BREAST DIAGNOSTIC MAMMOGRAM OF SAME DAY. CRL:kade /Dictated by: Fernando Phillip MD @ 04/11/2025 11:44:00 AM (Electronically Signed)
== END 2025-04-11 10:46 | disposition home or self-care (01) ==
LOC: MAMMO 10:45
PROVIDERS: PCP Nurse Practitioner Family; Visit Provider Nurse Practitioner Family
DX: N63.20 Unspecified lump in the left breast, unspecified quadrant (principal); R92.8 Other abnormal and inconclusive findings on diagnostic imaging of breast
CPT/HCPCS: 76642; 77065; G0279